=== PATIENT | male | born 1955 | race African-American/Black ===

== ENCOUNTER 2021-05-29 18:49 | Emergency (ER) | payer BC, OTHER ==
--- OUTSIDE RECORDS SUMMARY | 2021-05-29 18:53 | XMS REPORT | Continuity of Care Document ---
:1955 Author Organization [facility] t Address [address] [place] [address] Care Team Providers Name Role Phone An Attending Clinician Unavailable Raphael_Sumi Admitting Clinician Unavailable Payers Payer Name Policy Type Policy Number Effective Date Expiration Date darek [facility] [id number] 2021 (MEDICARE 00:00:00 REPLACEMENT H[place]) [place] [id number] 2019 (PPO) 0 00:00:00 Problems Condition Condition Condition Status Onset Resolution Last Treating Co mments Source Name Details Category Date Date Treatment Clinician Date Type 2 Type 2 Problem Active [facility] diabetes Diabetes 4-05 Family mellitus Mellitus 00:00: Practi c 00 e Overweight Overweight Problem Active [facility] 8-07 Family 00:00: Practic 00 e Hyperlipid Hyperlipid Problem Active 2016-05 [facility] emia emia 1-17 Family 00:00: Practic 00 e Cataract Cataract Problem Active 2016-05 Patel ge -17 Family 00:00: Practic 00 e Essential Essential Problem Active 2016-05 Abhinav ger hypertensi Hypertensi -17 Fa saniya on on 00:00: Practic 00 e Seasonal Seasonal Problem Active 2016-05 Patel ge allergic Allergic 17 Family rhinitis Rhinitis 00:00: Practi c 00 e Primary Primary Problem Active 2016-05 [facility] erectile Erectile 17 Family dysfunctio Dysfunctio 00:00: Pr actic n n 00 e Disorder Disorder Problem Active 2016-05 Patel ge due to Due to 05-14 Family type 2 Type 2 00:00: Practic diabetes Diabetes 00 e mellitus Mellitus Impotence Impotence Problem Active 2016-05 Abhinav ger 05-14 Family 00:00: Practic 00 e Hypertensi Hypertensi Problem Active 2016-05 [facility] ve ve 05-14 Family disorder Disorder 00:00: Practi c 00 e 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 [facility] e lens e Lens 05-14 Family finding Finding 00:00: Practic 00 e Family Family Problem Active 2016-05 [facility] history of History of 05-14 Fa saniya cardiac Cardiac 00:00: Practic disorder Disorder 00 e Allergies, Adverse Reactions, Alerts This patient has no known allergies or adverse reactions. Social History Smoking Status Start Date Stop Date Source Smoker, Current Status Unknown [facility] Medications Ordered Filled Start Stop Current Ordering Indication Dosage Frequency Signature Comments Components Source Medication Medication Date Date Medication? Clinician (SIG) Name Name Accu-Chek Accu-Chek No Accu-Chek [facility] Fastclix Fastclix Fastclix Fam stephanie Lancet Drum Lancet Drum Lancet Practic Drum e Accu-Chek Accu-Chek No Accu-Chek [facility] FastClix FastClix FastClix Fam stephanie Lancing Lancing Lancing Practi c Device Device Device e Accu-Chek Accu-Chek No Accu-Chek [facility] Guide Guide Guide [facility] Glucose Glucose Glucose Practi c Meter Meter Meter e Accu-Chek Accu-Chek No Accu-Chek [facility] test Guide test Guide test Family strips USE strips USE strips USE Practic DIRECTED DIRECTED e THREE TIMES THREE TIMES DIRECTED DAILY DAILY THREE TIMES DAILY azelastine azelastine No azelastine [facility] 0.05 % eye 0.05 % eye 0.05 % eye Family drops drops drops Practic e fluticasone fluticasone No fluticason [place] propionate propionate e Fam stephanie 50 50 propionate Practic mcg/actuati mcg/actuati 50 e on nasal on nasal mcg/actuat spray,suspe spray,suspe ion nasal nsion nsion spray,susp ension losartan losartan No losartan Abhinav ger 100 mg 100 mg 100 mg Family tablet TAKE tablet TAKE tablet Practic 1 TABLET BY 1 TABLET BY TAKE 1 e MOUTH EVERY MOUTH EVERY TABLET BY DAY DAY MOUTH EVERY DAY lovastatin lovastatin No lovastatin [facility] 10 mg 10 mg 10 mg Family tablet TAKE tablet TAKE tablet Practic 1 TABLET BY 1 TABLET BY TAKE 1 e MOUTH EVERY MOUTH EVERY TABLET BY DAY WITH DAY WITH MOUTH MEAL MEAL EVERY DAY WITH MEAL meloxicam meloxicam No meloxicam [facility] 15 mg 15 mg 15 mg Family tablet tablet tablet Practic e metoclopram metoclopram No metoclopra [facility] aleksey 10 mg aleksey 10 mg mide 10 mg Family tablet tablet tablet Practic e montelukast montelukast No montelukas [facility] 10 mg 10 mg t 10 mg Family tablet tablet tablet Practic e pioglitazon pioglitazon No pioglitazo [facility] e 15 mg e 15 mg ne 15 mg Famil y tablet TAKE tablet TAKE tablet Practic 1 TABLET BY 1 TABLET BY TAKE 1 e MOUTH EVERY MOUTH EVERY TABLET BY DAY DAY MOUTH EVERY DAY Restasis Restasis No Restasis Abhinav ger 0.05 % eye 0.05 % eye 0.05 % eye Family drops in a drops in a drops in a Practic dropperette dropperette dropperett e INSTILL 1 INSTILL 1 e INSTILL DROP INTO DROP INTO 1 DROP BOTH EYES 2 BOTH EYES 2 INTO BOTH TIMES A DAY TIMES A DAY EYES 2 TIMES A DAY sildenafil sildenafil No sildenafil [facility] 100 mg 100 mg 100 mg Family tablet One tablet One tablet One Practic tab every tab every tab every e three days three days three days as needed as needed as needed Synjardy XR Synjardy XR No Synjardy [facility] 12.5 12.5 XR 12.5 Family mg-1,000 mg mg-1,000 mg mg-1,000 Practic tablet, tablet, mg tablet, e extended extended extended release release release TAKE 2 TAKE 2 TAKE 2 TABLETS BY TABLETS BY TABLETS BY MOUTH ONCE MOUTH ONCE MOUTH ONCE DAILY IN DAILY IN DAILY IN THE MORNING THE MORNING THE MORNING Vital Signs Vital Name Observation Time Observation Value Comments Source BP Diastolic 2020-08-10 00:00:00 97 mm[Hg] [facility] Height 2020-08-10 00:00:00 71.5 [in_i] [facility] BMI (Body Mass 2020-08-10 00:00:00 26.1 kg/m2 [facility] Practice BP Systolic 2020-08-10 00:00:00 166 mm[Hg] [facility] Body Weight 2020-08-10 00:00:00 190 [lb_av] [facility] Body Weight 2020-03-25 00:00:00 196 [lb_av] [facility] BP Diastolic 2020-03-25 00:00:00 84 mm[Hg] [facility] Height 2020-03-25 00:00:00 71.5 [in_i] [facility] BMI (Body Mass 2020-03-25 00:00:00 27 kg/m2 [facility] Family Index) Practice BP Systolic 2020-03-25 00:00:00 144 mm[Hg] [facility] Procedures Procedure Date / Time Performing Clinician Source Performed Laparoscopic [facility] Cholecystectomy Practice Plan of Care Planned Activity Planned Date Details Comments Source Diagnostic Test 2020-08-10 glucose, fingerstick, Abhinav Pantoja Pending 00:00:00 blood [code = Practice glucose, fingerstick, blood] Diagnostic Test 2020-08-10 hemoglobin A1C, Prasanna miles Pending 00:00:00 fingerstick [code = Practice hemoglobin A1C, fingerstick] Encounters Start End Encounter Admission Attending Care Care Encounter Source Date/Time Date/Time Type Type Clinicians Facility Department ID 2021-04-19 2021-04-19 Outpatient DMG DMG [id number] [facility] 11:00:00 11:00:00 [facility] 2020-08-12 2020-08-12 Outpatient Daniel_T VFP VFP [id number] [address] [place] [address] 06:47:00 06:47:00 [id number] Family Practic e 2020-08-10 2020-08-10 Outpatient Daniel_T [facility]FP VFP [id number] [address] [place] [address] 04:42:00 04:42:00 [id number] Family Practic e 2020-08-10 2020-08-10 Stephen VFP [place] - [id number] [facility] 00:00:00 00:00:00 Cristian [facility] Mary Beth Monk - Practi freya SMITH: [id number] [email or web address]_René fuentes [facility], [address], [place] [address] , Ph. 2020-06-25 2020-06-25 Outpatient Daniel_T VFP VFP [id number] [address] [place] [address] 09:03:00 09:03:00 [id number] Family Practic e 2020-06-25 2020-06-25 Outpatient Daniel_T VFP VFP [id number] 8-20 [facility] 09:03:00 09:03:00 [id number] Family Practic e 2020-06-24 2020-06-24 Outpatient Daniel_T VFP VFP [id number] 8-20 [facility] 12:33:00 12:33:00 [id number] Family Practic e 2020-03-30 2020-03-30 Outpatient Daniel_T VFP VFP [id number] 8-20 [facility] 05:41:00 05:41:00 [id number] Family Practic e 2020-03-25 2020-03-25 Outpatient Daniel_T VFP VFP [id number] 8-20 [facility] 04:32:00 04:32:00 [id number] Family Practic e 2020-03-25 2020-03-25 Stephen VFP [place] - [id number] [facility] 00:00:00 00:00:00 [facility] Family LimMary Beth MD: [id number] VM_HOU_Onel [facility] [address], [place] [address] , Ph. Results Test Description Test Time Test Comments Results Result [facility] Comments - CT MAXIFAC W/O 2018-08-03 Name: STORMY RODRIGUEZ CONTRAST 08:51:00 [facility] : 1955 Age/S: 63 / M [address] [facility] Unit #: [id number] Loc: [place] [address] Phys: Nik Aguilera III, MD Acct: [id number] Dis Date: Status: REG CLI PHONE #: [phone] Exam Date: 08/03/2018 0805 FAX #: Reason: CHRONIC SINUS UNSPECIFIED LOCATION EXAMS: CPT: [id number] CT MAXIFAC W/O CONTRAST [address] CT SINUSES WITHOUT IV CONTRAST; CORONAL AND SAGITTAL REFORMATTED VIEWS HISTORY:CHRONIC SINUS UNSPECIFIED LOCATION COMPARISON:None. TECHNIQUE: Axial CT images of the sinuses were obtained with coronal and sagittal reformatted views. Automated exposure control, iterative reconstruction technique, and/or adjustment of mA and/or kV according to patient's size was utilized for radiation dose reduction. IV CONTRAST: None. Location: U19. FINDINGS: Mild polypoid thickening along the inferior aspects of both maxillary sinuses. Probable mucous retention cyst in the right maxillary sinus measuring 1.9 x 2 cm. There is thickening of the ethmoid sinuses bilaterally with obstruction of both ostiomeatal complexes. There is minimal thickening in the left sphenoid sinus. Thickening seen along both frontal ethmoidal recess partial obstruction of the right frontal ethmoidal airway and obstruction along the left frontal ethmoidal airway. The mastoid air cells are clear. No facial fracture. No significant nasal septal deviation. There may be some mild thickening of the inferior nasal turbinates. The orbits appear intact. No retrobulbar hemorrhage or mass. No CT evidence of extraocular muscle entrapment, correlate clinically. IMPRESSION: Mild sinus disease of the maxillary ethmoid sinuses, especially the ethmoid sinuses resulting in obstruction of the drainage pathways from the frontal and maxillary sinuses. at 0851 Reported and signed by: Tito Conrelius M.D. PAGE 1 Signed Report (CONTINUED) Name: STORMY RODRIGUEZ [facility] : 1955 Age/S: 63 / M [id number] [address] Unit #: [id number] Loc: [place] [address] Phys: Nik Aguilera III, MD Acct: [id number] Dis Date: Status: REG CLI PHONE #: [phone] Exam Date: 08/03/2018 0805 FAX #: Reason: CHRONIC SINUS UNSPECIFIED LOCATION EXAMS: CPT: [id number] CT MAXIFAC W/O CONTRAST 10741 <Continued> CC: Stephen Lim MD; Nik Aguilera III, MD Technologist:Froylan Alas, RT(R)(CT) CTDI: DLP: Trnscb Date/Time: 08/03/2018 (850) [email or web address] Orig Print D/T: S: 08/03/2018 (54) CTDI: DLP: PAGE 2 Signed Report
[2021-05-29 20:19] LABS: Absolute Lymphocytes (CBC) 1.6 K/uL (0.7-4.9); Hematocrit 41.4 % (39.6-49.0); Lymphocytes % 26.9 % (15.3-44.8); MPV 8.9 fL (7.6-11.3); RBC Red Blood Cell Count 4.93 M/uL (4.33-5.43)
[2021-05-29 20:33] LABS: Protime INR 0.99
[2021-05-29 20:39] LABS: ALT/SGPT 28 U/L (12-78); Albumin 3.4 g/dL (3.4-5.0); Alkaline Phosphatase 90 U/L (45-117); BUN Blood Urea Nitrogen 23 mg/dL (7-18); Bicarbonate 22 mmol/L (21-32); Bilirubin Direct < 0.1 mg/dL (0-0.2); Bilirubin Total 0.1 mg/dL (0.2-1.0); Glucose Level 139 mg/dL (74-106); Protein, Total 7.5 g/dL (6.4-8.2); Sodium Level 139 mmol/L (136-145)
[2021-05-29 20:40] LABS: AST/SGOT 20 U/L (15-37); Potassium 4.3 mmol/L (3.5-5.1)
[2021-05-29 20:41] LABS: NT PRO-BNP < 5 pg/mL (<125)
--- NOTE | 2021-05-29 21:49 | RAD REPORT ---
EXAM DESCRIPTION: USExtrem Venous W Compress Bil05/29/2021 9:43 pm CLINICAL HISTORY: Leg pain COMPARISON: none FINDINGS: The common femoral, superficial femoral, popliteal and posterior tibial veins bilaterally are compressible and demonstrate augmentation. Doppler demonstrates good flow. IMPRESSION: No evidence of deep venous thrombosis involving either lower extremity.
--- NOTE | 2021-05-29 22:00 | RAD REPORT ---
EXAM DESCRIPTION: CT - Chest For Pe Angio - 05/29/2021 9:42 pm CLINICAL HISTORY: Chest pain COMPARISON: None. TECHNIQUE: Dynamically enhanced axial 3 mm thick images of the chest were obtained during administra tion of <100> mL Isovue 370 IV contrast. Coronal and oblique reconstruction images were generated and reviewed. Exam utilizes a protocol for optimal evaluation of pulmonary arterial tree. Maximum intensity projections 3D imaging was utilized All CT scans are performed using dose optimization technique as appropriate and may include automated exposure control or mA/KV adjustment according to patient size. FINDINGS: A pulmonary embolus is not seen. A thoracic aortic aneurysm is not noted. A pleural effusion is not seen. A pericardial effusion is not seen. Mild to moderate ground-glass opacities scattered throughout the left lung. Minimal ground-glass opac ities right lung IMPRESSION: Negative for a pulmonary embolism. Mild to moderate left and minimal right ground-glass opacities can be seen with viral pneumonia and p neumonitis
--- NOTE | 2021-05-29 22:02 | RAD REPORT ---
EXAM DESCRIPTION: Miguelito Single View05/29/2021 8:48 pm CLINICAL HISTORY: Congestive COMPARISON: 2014 FINDINGS: Tkco-[id number] left lung opacities. Right lung appears clear. Heart is normal size IMPRESSION: Mild to moderate left lung opacities probably pneumonia
[2021-05-29] MEDS ORDERED: ASPIRIN EC 81 MG TAB PO ONE (22:16)
--- NOTE | 2021-05-29 22:16 | EDPHYS ---
Physician Documentation [facility] Name: Keyur Fuller Age: 65 yrs Sex: Male : 1955 Arrival Date: 05/29/2021 Time: 18:53 Bed 25 Private MD: ED Physician Herb Guy HPI: 05/29 19:36 This 65 yrs old Black Male presents to ER via Ambulatory with complaints of Weakness, briana Leg Pain. 19:36 weakness. Onset: The symptoms/episode began/occurred yesterday. Severity of symptoms: briana At their worst the symptoms were mild in the emergency department the symptoms are unchanged. The patient has experienced similar episodes in the past, a few times. Historical: - Allergies: 19:11 No Known Allergies; ld1 - PMHx: 19:11 Diabetes - NIDDM; High Cholesterol; Hypertension; ld1 - PSHx: 19:11 None; ld1 - Immunization history:: Adult Immunizations up to date, Client reports receiving the 2nd dose of the Covid vaccine. - Social history:: Smoking status: Patient denies any tobacco usage or history of. Patient/guardian denies using alcohol. ROS: 19:36 Constitutional: Negative for fever, chills, and weight loss, Eyes: Negative for injury, briana pain, redness, and discharge, ENT: Negative for injury, pain, and discharge, Neck: Negative for injury, pain, and swelling, Cardiovascular: Negative for chest pain, palpitations, and edema, Respiratory: Negative for shortness of breath, cough, wheezing, and pleuritic chest pain, Abdomen/GI: Negative for abdominal pain, nausea, vomiting, diarrhea, and constipation, Back: Negative for injury and pain, : Negative for injury, bleeding, discharge, and swelling, MS/Extremity: Negative for injury and deformity, Skin: Negative for injury, rash, and discoloration, Psych: Negative for depression, anxiety, suicide ideation, homicidal ideation, and hallucinations, Allergy/Immunology: Negative for hives, rash, and allergies, Endocrine: Negative for neck swelling, polydipsia, polyuria, polyphagia, and marked weight changes, Hematologic/Lymphatic: Negative for swollen nodes, abnormal bleeding, and unusual bruising. 19:36 Neuro: Positive for weakness. Exam: 19:36 Constitutional: This is a well developed, well nourished patient who is awake, alert, briana and in no acute distress. Head/Face: Normocephalic, atraumatic. Eyes: Pupils equal round and reactive to light, extra-ocular motions intact. Lids and lashes normal. Conjunctiva and sclera are non-icteric and not injected. Cornea within normal limits. Periorbital areas with no swelling, redness, or edema. ENT: Nares patent. No nasal discharge, no septal abnormalities noted. Tympanic membranes are normal and external auditory canals are clear. Oropharynx with no redness, swelling, or masses, exudates, or evidence of obstruction, uvula midline. Mucous membranes moist. Neck: Trachea midline, no thyromegaly or masses palpated, and no cervical lymphadenopathy. Supple, full range of motion without nuchal rigidity, or vertebral point tenderness. No Meningismus. Chest/axilla: Normal chest wall appearance and motion. Nontender with no deformity. No lesions are appreciated. Cardiovascular: Regular rate and rhythm with a normal S1 and S2. No gallops, murmurs, or rubs. Normal PMI, no JVD. No pulse deficits. Respiratory: Lungs have equal breath sounds bilaterally, clear to auscultation and percussion. No rales, rhonchi or wheezes noted. No increased work of breathing, no retractions or nasal flaring. Abdomen/GI: Soft, non-tender, with normal bowel sounds. No distension or tympany. No guarding or rebound. No evidence of tenderness throughout. Back: No spinal tenderness. No costovertebral tenderness. Full range of motion. Male : Normal genitalia with no discharge or lesions. Skin: Warm, dry with normal turgor. Normal color with no rashes, no lesions, and no evidence of cellulitis. MS/ Extremity: Pulses equal, no cyanosis. Neurovascular intact. Full, normal range of motion. Neuro: Awake and alert, GCS 15, oriented to person, place, time, and situation. Cranial nerves II-XII grossly intact. Motor strength 5/5 in all extremities. Sensory grossly intact. Cerebellar exam normal. Normal gait. Psych: Awake, alert, with orientation to person, place and time. Behavior, mood, and affect are within normal limits. 20:08 ECG was reviewed by the Attending Physician. [facility] Vital Signs: 19:15 BP 144 / 86; Pulse 88; Resp 16; Temp 99.1; Pulse Ox 97% on R/A; Pain 5/10; palmer 20:13 BP 142 / 85; Pulse 85; Resp 18; Pulse Ox 99% on R/A; Pain 5/10; palmer 21:08 BP 140 / 85; Pulse 79; Resp 18; Pulse Ox 99% on R/A; palmer 23:16 BP 122 / 82; Pulse 73; Resp 16; Temp 98.6; Pulse Ox 98% on R/A; Pain 0/10; palmer NIH Stroke Scale Scores: 20:13 NIHSS Score: 0 palmer MDM: 19:16 Patient medically screened. briana 19:37 Data reviewed: vital signs, nurses notes, lab test result(s), EKG, radiologic studies, briana CT scan, plain films. Data interpreted: quality assurance monitor chassis: rate is 78 beats/min, rhythm is regular. Test interpretation: by ED physician or midlevel provider: ECG, plain radiologic studies. Counseling: I had a detailed discussion with the patient and/or guardian regarding: the historical points, exam findings, and any diagnostic results supporting the discharge/admit diagnosis, lab results, radiology results, the need for outpatient follow up, for definitive care, a family practitioner. 05/29 19:27 Order name: Basic Metabolic Panel; Complete Time: 21:56 [facility] 05/29 19:27 Order name: CBC with Diff; Complete Time: 20:29 [facility] 05/29 19:27 Order name: LFT's; Complete Time: 21:56 [facility] 05/29 19:27 Order name: Magnesium; Complete Time: 21:56 [facility] 05/29 19:27 Order name: NT PRO-BNP; Complete Time: 21:56 [facility] 05/29 19:27 Order name: PT-INR; Complete Time: 21:56 [facility] 05/29 19:27 Order name: Troponin HS; Complete Time: 21:56 [facility] 05/29 19:27 Order name: XRAY Chest (1 view); Complete Time: 22:08 [facility] 05/29 19:27 Order name: D-Dimer; Complete Time: :56 [facility] 05/29 19:34 Order name: SARS-COV-2 RT PCR (Document "Date of Onset" if Symptomatic); Complete Time: [facility] 05/29 20:40 Order name: CT Chest For PE Angio; Complete Time: 22:08 [facility] 05/29 20:40 Order name: US Extremity Venous W Compression Edilson; Complete Time: 21:56 [facility] 05/29 23:24 Order name: Urine Dipstick-Ancillary EDMS 05/29 19:27 Order name: EKG; Complete Time: 19:28 [facility] 05/29 19:27 Order name: Cardiac monitoring; Complete Time: 19:32 [facility] 05/29 19:27 Order name: EKG - Nurse/Tech; Complete Time: 20:10 [facility] 05/29 19:27 Order name: IV Saline Lock; Complete Time: :32 [facility] 05/29 19:27 Order name: Labs collected and sent; Complete Time: :32 [facility] 05/29 19:27 Order name: O2 Per Protocol; Complete Time: : [facility] 05/29 19:27 Order name: O2 Sat Monitoring; Complete Time: :32 [facility] 05/29 19:27 Order name: Urine Dipstick-Ancillary (obtain specimen); Complete Time: 23:23 [facility] EC:08 Rate is 79 beats/min. Rhythm is regular. QRS [place] is Normal. VA interval is normal. QRS briana interval is normal. QT interval is normal. No Q waves. T waves are Normal. No ST changes noted. Clinical impression: Normal ECG and No evidence of ischemia. Interpreted by me. Reviewed by me. Administered Medications: 20:00 Drug: NS 0.9% 1000 ml Route: IV; Rate: 1 bolus; Site: left antecubital; palmer 21:46 Follow up: Response: No adverse reaction; IV Status: Completed infusion; IV Intake: palmer 1000ml 23:09 Follow up: Response: No adverse reaction; IV Intake: 1000ml palmer 20:00 Drug: Aspirin 81 mg Route: PO; palmer 20:35 Follow up: Response: No adverse reaction palmer 22:17 Drug: Pepcid (famotidine) 40 mg Route: PO; palmer 23:08 Follow up: Response: No adverse reaction palmer 22:17 Drug: Zithromax (azithromycin) 500 mg Route: PO; palmer 23:08 Follow up: Response: No adverse reaction palmer 22:17 Drug: Aspirin 243 mg Route: PO; palmer 23:08 Follow up: Response: No adverse reaction palmer Disposition Summary: 05/29/21 22:15 Discharge Ordered Location: Home briana Problem: new briana Symptoms: have improved briana Condition: Stable briana Diagnosis - Type 2 diabetes mellitus with hyperglycemia briana - Pneumonia due to SARS-associated coronavirus briana - Weakness briana - Coronavirus infection, unspecified [facility]up[facility] - With: Private Physician - When: 2 - 3 days - Reason: Recheck today's complaints, Continuance of care, Re-evaluation by your physician Discharge Instructions: - Discharge Summary Sheet briana - Community-Acquired Pneumonia, Adult briana - Weakness briana - Fatigue briana - Community-Acquired Pneumonia, Adult, Gipr-kg-Xglf briana - Weakness, Hago-wi-Lqmj briana - Aspirin and Your Heart briana - COVID-19 [facility] - COVID-19 Frequently Asked Questions [facility] - Things You Can Do to Manage Your COVID-19 Symptoms at Home - [facility] - COVID-19: Quarantine vs. Isolation - [facility] Forms: - Medication Reconciliation Form [facility] - Thank You Letter [facility] - Antibiotic Education [facility] - Prescription Opioid Use [facility] Prescriptions: - albuterol sulfate 90 mcg/actuation Inhalation HFA aerosol inhaler - inhale 2 puff by INHALATION route every 4-6 hours; 1 Pump; Refills: 0, Product [facility] Selection Permitted - ivermectin 3 mg Oral tablet - take 5 tablet by ORAL route once daily; 15 tablet; Refills: 0, Product [facility] Selection Permitted - Pepcid 20 mg Oral Tablet - take 1 tablet by ORAL route every 12 hours for 30 days; 60 tablet; Refills: 0, [facility] Product Selection Permitted - Singulair 10 mg Oral Tablet - take 1 tablet by ORAL route At bedtime; 30 tablet; Refills: 0, Product [facility] Selection Permitted - Zithromax 500 mg Oral Tablet - take 1 tablet by ORAL route once daily for 5 days; 5 tablet; Refills: 0, [facility] Product Selection Permitted NIH Stroke Scale - NIH Stroke Score Date: 05/29/2021 Time: 20:13 Total Score = 0 1a. Level of Consciousness (LOC) - 0(Alert) 1b. Level of Consciousness (LOC) (Month \\T\\ Age) - 0(Both) 1c. LOC Commands (Open \\T\\ Closes Eyes/Prototype Engineer Manager) - 0(Both) 2. Best Gaze (Lateral Gaze Paresis) - 0(Normal) 3. Visual Field Loss - 0(No visual loss) 4. Facial Palsy - 0(Normal) 5a. Left Arm: Motor (10-second hold) - 0(No drift) 5b. Right Arm: Motor (10-second hold) - 0(No drift) 6a. Left Leg: Motor (5-second hold - always test supine) - 0(No drift) 6b. Right Leg: Motor (5-second hold - always test supine) - 0(No drift) 7. Limb Ataxia (finger/nose \\T\\ heel/conrad - test with eyes open) - 0(Absent) 8. Sensory Loss (pinprick arms/legs/face) - 0(Normal) 9. Best Language: Aphasia (description/naming/reading) - 0(No aphasia) 10. Dysarthria (speech clarity - read or repeat words) - 0(Normal) 11. Extinction and Inattention (visual/tactile/auditory/spatial/personal) - 0(No abnormality) Initials: palmer Signatures: Dispatcher [employer] Herb Marmolejo MD MD cha Dibbern, Lauren, RN RN ld1 Haven Ayala RN RN palmer
--- NOTE | 2021-05-29 22:16 | ER ---
Nurse's Notes [facility] Name: Keyur Fuller Age: 65 yrs Sex: Male : 1955 Arrival Date: 05/29/2021 Time: 18:53 Bed 25 Private MD: Diagnosis: Type 2 diabetes mellitus with hyperglycemia;Pneumonia due to SARS-associated coronavirus;Weakness;Coronavirus infection, unspecified Presentation: 05/29 19:10 Chief complaint: Patient states: I have had DANIEL leg pain X 1 month. It seems to be ld1 getting worse. Pt thinks he has arthritis. Coronavirus screen: At this time, the client does not indicate any symptoms associated with coronavirus-19. Ebola Screen: No symptoms or risks identified at this time. No acute neurological deficit is noted. Pre-hospital glucose is not applicable to this patient. Initial Sepsis Screen: Does the patient meet any 2 criteria? No. Patient's initial sepsis screen is negative. Does the patient have a suspected source of infection? No. Patient's initial sepsis screen is negative. Risk Assessment: Do you want to hurt yourself or someone else? Patient reports no desire to harm self or others. Onset of symptoms was May 29, 2021. 19:10 Method Of Arrival: Ambulatory ld1 19:10 Acuity: MARKO 4 ld1 Triage Assessment: 19:11 The onset of the patients symptoms was May 29, 2021 at 19:12. General: Appears in ld1 no apparent distress. comfortable, Behavior is calm, cooperative, appropriate for age. Pain: Complains of pain in right leg and left leg Pain does not radiate. Neuro: Level of Consciousness is awake, alert, obeys commands, Oriented to person, place, time, situation, Reports weakness. Respiratory: Airway is patent Respiratory effort is even, unlabored, Respiratory pattern is regular, symmetrical. Historical: - Allergies: 19:11 No Known Allergies; ld1 - PMHx: 19:11 Diabetes - NIDDM; High Cholesterol; Hypertension; ld1 - PSHx: 19:11 None; ld1 - Immunization history:: Adult Immunizations up to date, Client reports receiving the 2nd dose of the Covid vaccine. - Social history:: Smoking status: Patient denies any tobacco usage or history of. Patient/guardian denies using alcohol. Screenin:13 Abuse screen: Denies threats or abuse. Denies injuries from another. Nutritional palmer screening: No deficits noted. Tuberculosis screening: No symptoms or risk factors identified. Fall Risk None identified. Assessment: 20:13 VAN Scoring: Arm Drift: Patients demonstrates NO arm weakness. Patient is VAN Negative. palmer Patient has been NPO before screening. The patient is alert, and able to follow commands. The patient does not exhibit slurred or garbled speech. The patient is not exhibiting difficulty speaking. The patient does not exhibit difficulty understanding words. The patient is able to swallow own secretions with no drooling or need for suction. Patient tolerated one teaspoon of water. No drooling, immediate coughing, gurgling, or clearing of the throat was noted. The patient tolerated 90mL of water. No drooling, immediate coughing, gurgling, or clearing of the throat was noted. The patient passed the bedside swallow screening. Oral medications may be given as ordered. Contact Physician for further diet orders. T-PA (Activase) Screening: Indications:. General: Appears in no apparent distress. comfortable, well groomed, Behavior is calm, cooperative, Smells of Reports Bilateral leg pain x "a few months, but got worse with the cold snap". Pain: Complains of pain in right leg and left leg. Neuro: No deficits noted. Cardiovascular: No deficits noted. Respiratory: No deficits noted. GI: No deficits noted. : No deficits noted. Musculoskeletal: Reports weakness in right leg and left leg x "a few months, but got worse with the cold snap" Pt reports he saw his GP and was diagnosed with arthritis "a few weeks ago" for the same pain. 21:30 General: The pt is sleeping, on the bs monitor, with NAD. I asked that he provide a palmer urine specimen, but as of yet, hasn't. . 21:37 General: Pt taken to CT, via stretcher. . palmer 21:46 General: The pt has returned from CT. . palmer Vital Signs: 19:15 BP 144 / 86; Pulse 88; Resp 16; Temp 99.1; Pulse Ox 97% on R/A; Pain 5/10; palmer 20:13 BP 142 / 85; Pulse 85; Resp 18; Pulse Ox 99% on R/A; Pain 5/10; palmer 21:08 BP 140 / 85; Pulse 79; Resp 18; Pulse Ox 99% on R/A; palmer 23:16 BP 122 / 82; Pulse 73; Resp 16; Temp 98.6; Pulse Ox 98% on R/A; Pain 0/10; palmer NIH Stroke Scale Scores: 20:13 NIHSS Score: 0 palmer ED Course: 18:53 Patient arrived in ED. as 19:11 Triage completed. ld1 19:11 Arm band placed on right wrist. ld1 19:16 Herb Guy MD is Attending Physician. briana 19:31 Haven Ayala, RN is Primary Nurse. palmer 19:31 Troponin HS Sent. palmer 19:31 PT-INR Sent. palmer 19:31 NT PRO-BNP Sent. palmer 19:32 Magnesium Sent. palmer 19:32 LFT's Sent. palmer 19:32 CBC with Diff Sent. palmer 19:32 Basic Metabolic Panel Sent. palmer 19:32 D-Dimer Sent. palmer 20:10 XRAY Chest (1 view) Sent. palmer 20:13 Patient has correct armband on for positive identification. Placed in gown. Bed in low palmer position. Call light in reach. Side rails up X 1. youth nutritional monitor on. Pulse ox on. NIBP on. Door closed. Noise minimized. Lights dimmed. Verbal reassurance given. 20:13 No provider procedures requiring assistance completed. Inserted saline lock: 20 gauge palmer in left antecubital area, using aseptic technique. 20:20 EKG completed in triage. Results shown to MD. palmer 20:23 D-Dimer Sent. palmer 20:35 SARS-COV-2 RT PCR (Document "Date of Onset" if Symptomatic) Sent. palmer 20:48 XRAY Chest (1 view) In Process Unspecified. EDMS 21:30 SARS-COV-2 RT PCR (Document "Date of Onset" if Symptomatic) Sent. palmer 21:30 US Extremity Venous W Compression Daniel Sent. palmer 21:43 CT Chest For PE Angio In Process Unspecified. EDMS 21:43 US Extremity Venous W Compression Daniel In Process Unspecified. EDMS 23:16 intact, bleeding controlled, No redness/swelling at site. Pressure dressing applied. palmer Administered Medications: 20:00 Drug: NS 0.9% 1000 ml Route: IV; Rate: 1 bolus; Site: left antecubital; palmer 21:46 Follow up: Response: No adverse reaction; IV Status: Completed infusion; IV Intake: palmer 1000ml 23:09 Follow up: Response: No adverse reaction; IV Intake: 1000ml palmer 20:00 Drug: Aspirin 81 mg Route: PO; palmer 20:35 Follow up: Response: No adverse reaction palmer 22:17 Drug: Pepcid (famotidine) 40 mg Route: PO; palmer 23:08 Follow up: Response: No adverse reaction palmer 22:17 Drug: Zithromax (azithromycin) 500 mg Route: PO; palmer 23:08 Follow up: Response: No adverse reaction palmer 22:17 Drug: Aspirin 243 mg Route: PO; palmer 23:08 Follow up: Response: No adverse reaction palmer Intake: 21:46 IV: 1000ml; Total: 1000ml. palmer 23:09 IV: 1000ml; Total: 2000ml. palmer Outcome: 20:20 Condition: stable palmer 22:15 Discharge ordered by . briana 23:15 Discharged to home ambulatory, The pt's is also being seen, so the pt is going to palmer room 27 to be with her. 23:15 Discharge instructions given to patient, Instructed on discharge instructions, medication usage, Demonstrated understanding of instructions, follow-up care, medications, Prescriptions given X x 5 23:32 Patient left the ED. palmer NIH Stroke Scale - NIH Stroke Score Date: 05/29/2021 Time: 20:13 Total Score = 0 1a. Level of Consciousness (LOC) - 0(Alert) 1b. Level of Consciousness (LOC) (Month \\T\\ Age) - 0(Both) 1c. LOC Commands (Open \\T\\ Closes Eyes/Heel Lining Paster) - 0(Both) 2. Best Gaze (Lateral Gaze Paresis) - 0(Normal) 3. Visual Field Loss - 0(No visual loss) 4. Facial Palsy - 0(Normal) 5a. Left Arm: Motor (10-second hold) - 0(No drift) 5b. Right Arm: Motor (10-second hold) - 0(No drift) 6a. Left Leg: Motor (5-second hold - always test supine) - 0(No drift) 6b. Right Leg: Motor (5-second hold - always test supine) - 0(No drift) 7. Limb Ataxia (finger/nose \\T\\ heel/conrad - test with eyes open) - 0(Absent) 8. Sensory Loss (pinprick arms/legs/face) - 0(Normal) 9. Best Language: Aphasia (description/naming/reading) - 0(No aphasia) 10. Dysarthria (speech clarity - read or repeat words) - 0(Normal) 11. Extinction and Inattention (visual/tactile/auditory/spatial/personal) - 0(No abnormality) Initials: palmer Signatures: Dispatcher [employer] Herb Marmolejo MD MD cha Martinez, Amelia as Dibbern, Lauren, RN RN ld1 Haven Ayala RN RN palmer
[2021-05-29] MEDS ORDERED: FAMOTIDINE 20 MG TAB ONE (22:17)
[2021-05-29] MEDS ORDERED: AZITHROMYCIN 250 MG TAB ONE (22:17)
[2021-05-29 23:24] LABS: Urine Blood Trace-intact (Negative); Urine Glucose 2+ (Negative); Urine Protein Trace (Negative)
[2021-05-30 00:28] VITALS: BP 122/82; TEMP 98.6; O2SAT 98
--- NOTE | 2021-05-31 08:06 | EKG ---
Test Date: 2021-05-29 Test Time: 19:47:59 Soccer Referee: MEASUREMENT RESULTS: Intervals: Rate: 79 NC: 142 QRSD: 94 QT: 358 QTc: 410 [place]: P: 54 NC: 142 QRS: -53 T: -13 INTERPRETIVE STATEMENTS: Normal sinus rhythm Left anterior fascicular block Abnormal ECG Compared to ECG 12/17/2014 17:53:31 ST (T wave) deviation no longer present Electronically Signed On 05-31-21 08:03:11 SHRIMP PEELER by Thomas Handy
== END 2021-05-29 23:32 | disposition home or self-care (01) ==
LOC: ER 18:49
DX: U07.1 COVID-19 (principal); J12.82 Pneumonia due to coronavirus disease 2019; E11.65 Type 2 diabetes mellitus with hyperglycemia; I10 Essential (primary) hypertension
CPT/HCPCS: 96361; 93005; 85025; 80048; 36415; 83735; 85610; 85379; 80076; 81003; 84484; 83880; 71275; 71045; 93970; 96360; 99284; U0003; Q9967

== ENCOUNTER 2022-09-01 03:11 | Emergency (ER) | payer MEDICARE ==
--- OUTSIDE RECORDS SUMMARY | 2022-09-01 03:14 | XMS REPORT | Continuity of Care Document ---
:1955 Author Organization [facility] t Address [address] [place] [address] [place] [id number] Care Team Providers Name Role Phone GRACIELA SEAN Primary Care Physician Unavailable An Attending Clinician Unavailable ALESIA MCKOY Attending Clinician Unavailable Alesia Zhu Attending Clinician Leeroy Lobato Attending Clinician Rico Attending Clinician Unavailable Melissa Lucero Attending Clinician An Admitting Clinician Unavailable ALESIA MCKOY Admitting Clinician Unavailable Rico Admitting Clinician Unavailable Payers Payer Name Policy Type Policy Number Effective Date Expiration Date S darek [employer] [id number] 2021 (MEDICARE 00:00:00 REPLACEMENT HMO) [employer] [id number] 2021 MEDICARE ADVANTAGE 00:00:00 [place] [id number] 2019 (PPO) 0 00:00:00 Problems Condition Condition Condition Status Onset Resolution Last Treating Co mments Source Name Details Category Date Date Treatment Clinician Date Body mass Body Mass Problem Active 2021-05 Abhinav ger index Index 0-28 Family 25-29 - 25-29 - 00:00: Practic overweight Overweight 00 e Neuropathy Neuropathy Problem Active 2021-05 [facility] due to Due to 0-28 Family diabetes Diabetes 00:00: Practi c mellitus Mellitus 00 e Type 2 Type 2 Problem Active [facility] diabetes Diabetes 4-05 Family mellitus Mellitus 00:00: Practi c 00 e Overweight Overweight Problem Active [facility] 8-07 Family 00:00: Practic 00 e Hyperlipid Hyperlipid Problem Active 2016-05 [facility] emia emia 1-17 Family 00:00: Practic 00 e Cataract Cataract Problem Active 2016-05 Jorge ge -17 Family 00:00: Practic 00 e Essential Essential Problem Active 2016-05 Abhinav cyr hypertensi Hypertensi -17 Fa saniya on on 00:00: Practic 00 e Seasonal Seasonal Problem Active 2016-05 Jorge ge allergic Allergic 17 Family rhinitis Rhinitis 00:00: Practi c 00 e Primary Primary Problem Active 2016-05 [facility] erectile Erectile 17 Family dysfunctio Dysfunctio 00:00: Pr actic n n 00 e Disorder Disorder Problem Active 2016-05 Jorge gray due to Due to 1-07 Family type 2 Type 2 00:00: Practic diabetes Diabetes 00 e mellitus Mellitus Impotence Impotence Problem Active 2016-05 Abhinav cyr 1-07 Family 00:00: Practic 00 e Hypertensi Hypertensi Problem Active 2016-05 [facility] ve ve 07 Family disorder Disorder 00:00: Practi c 00 e 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 [facility] e lens e Lens 05-14 Family finding Finding 00:00: Practic 00 e Family Family Problem Active 2016-05 [facility] history of History of 05-14 saniya cardiac Cardiac 00:00: Practic disorder Disorder 00 e Allergies, Adverse Reactions, Alerts Allergy Allergy Status Severity Reaction(s) Onset Inactive Treating Comm ents Source Name Type Date Date Clinician NO KNOWN Drug [facility] Social History Social Habit Start Date Stop Date Quantity Comments Source Exposure to 2022-07-25 2022-08-04 Not sure [facility] SARS-CoV-2 (event) 00:00:00 09:51:00 Medica l Branch Sex [birth year] At [birth year] [facility] [place] 00:00:00 00:00:00 Medical Branch Smoking Status Start Date Stop Date Source Smoker, Current Status Unknown [facility] Tobacco smoking consumption [facility] Medical unknown Branch Medications Ordered Filled Start Stop Current Ordering Indication Dosage Frequency Signature Comments Components Source Medication Medication Date Date Medication? Clinician (SIG) Name Name acetaminoph No 1000mg 1,000 mg, Univers en 08-04 Oral, ity of (TYLENOL) 17:30: 16:48 [place] tablet [place] :[place] dose, On Medical 1,000 mg Mary Lou Branch 08/04/22 at 1230, Routine dexamethaso 2022- No 10mg 10 mg, Uni vers ne 08-04 Oral, ity of (DECADRON 17:30: 17:30 [place] PHOSPHATE[place] 00 :00 dose, On Medic al injection [facility] Branch 10 mg 08/04/22 at 1230, Routine ketorolac 2022- No 30mg 30 mg, Unive rs (TORADOL) 08-04 Intramuscu ity of injection 17:15: 16:50 lar, ONCE, [place] 30 mg 00 :00 1 dose, On Medical Mary Lou [facility] 08/04/22 at 1215, Routine Diclofenac 2022- Yes [id number] Apply to [facility] Epolamine 08-04-07 skin 2 ity of 1.3 % patch 00:00: 04:59 (two) [place] 00 :00 times Medical daily for Branch 7 days. methocarbam 2022- Yes [id number] 500mg Take 1 Univers oL 500 mg 08-04 tablet by ity of tablet 00:00: 04:59 mouth 4 [place] 00 :00 (four) Medical times Branch daily for 7 days. ondansetron Yes [id number] 4mg Take 1 Univers (ZOFRAN) 4 5-04 tablet by ity of mg tablet 00:00: mouth [place] 00 every 8 Medical (eight) Branch hours as needed for Nausea and Vomiting (N/V). los[facility] 5-03 mouth. ity of (LOSARTAN 22:52: [place] ORAL) 31 Medical Branch GLIPIZIDE Yes Take by Unive rs ORAL 5-03 mouth. ity of 22:52: [place] [facility] metformin Yes Take by Unive rs HCl 5-03 mouth. ity of (METFORMIN 22:52: [place] ORAL) Medical Branch pioglitazon Yes Take by Uni vers e HCl 5-03 mouth. ity of (PIOGLITAZO 22:52: [place] NE ORAL) Medical Branch Accu-Chek Accu-Chek No Accu-Chek [facility] Fastclix Fastclix Fastclix Fam stephanie Lancet Drum Lancet Drum Lancet Practic Drum e Accu-Chek Accu-Chek No Accu-Chek [facility] FastClix FastClix FastClix Fam stephanie Lancing Lancing Lancing Practi c Device Device Device e Accu-Chek Accu-Chek No Accu-Chek Prasanna Guide Guide Guide Family Glucose Glucose Glucose Practi c Meter Meter Meter e Accu-Chek Accu-Chek No Accu-Chek [facility] Guide test Guide test Guide test Family strips USE strips USE strips USE Practic DIRECTED DIRECTED e THREE TIMES THREE TIMES DIRECTED DAILY DAILY THREE TIMES DAILY azelastine azelastine No azelastine [place] 0.05 % eye 0.05 % eye 0.05 % eye Family drops drops drops Practic e famotidine famotidine No famotidine [facility] 20 mg 20 mg 20 mg Family tablet TAKE tablet TAKE tablet Practic 1 TABLET BY 1 TABLET BY TAKE 1 e MOUTH EVERY MOUTH EVERY TABLET BY 12 HOURS 12 HOURS MOUTH EVERY 12 HOURS fluticasone fluticasone No fluticason [facility] propionate propionate e Fam stephanie 50 50 [...] MOUTH EVERY DAY lovastatin lovastatin No lovastatin [place] 10 mg 10 mg 10 mg Family tablet TAKE tablet TAKE tablet Practic 1 TABLET BY 1 TABLET BY TAKE 1 e MOUTH EVERY MOUTH EVERY TABLET BY DAY WITH DAY WITH MOUTH MEAL MEAL EVERY DAY WITH MEAL meloxicam meloxicam No meloxicam [facility] 15 mg 15 mg 15 mg Family tablet tablet tablet Practic e Metanx Metanx No 1capsul BID Metanx [place] e (algal oil) (algal oil) e(s) (algal Family 3 mg-35 3 mg-35 oil) 3 Practic mg-2 mg-2 mg-35 mg-2 e mg-90.314 mg-90.314 mg-90.314 mg capsule mg capsule mg capsule Take 1 Take 1 Take 1 capsule capsule capsule twice a day twice a day twice a by oral by oral day by route for route for oral route 90 days. 90 days. for 90 days. pioglitazon pioglitazon No pioglitazo [place] e 15 [...] TIMES A DAY sildenafil sildenafil No sildenafil [facility] 100 mg 100 mg 100 mg Family tablet TAKE tablet TAKE tablet Practic 1 TABLET BY 1 TABLET BY TAKE 1 e MOUTH EVERY MOUTH EVERY TABLET BY 72 HOURS 72 HOURS MOUTH NEEDED NEEDED EVERY 72 HOURS NEEDED Synjardy XR Synjardy XR No Synjardy [facility] 12.5 12.5 XR 12.5 Family mg-1,000 mg mg-1,000 mg mg-1,000 Practic tablet, tablet, mg tablet, e extended extended extended release release release TAKE 2 TAKE 2 TAKE 2 TABLETS BY TABLETS BY TABLETS BY MOUTH ONCE MOUTH ONCE MOUTH ONCE DAILY IN DAILY IN DAILY IN THE MORNING THE MORNING THE MORNING Accu-Chek Accu-Chek No Accu-Chek [facility] Fastclix Fastclix Fastclix Fam stephanie Lancet Drum Lancet Drum Lancet Practic Drum e Accu-Chek Accu-Chek No Accu-Chek [facility] FastClix FastClix FastClix Fam stephanie Lancing Lancing Lancing Practi c Device Device Device e Accu-Chek Accu-Chek No Accu-Chek [facility] Guide Guide Guide Family Glucose Glucose Glucose Practi c Meter Meter Meter e Accu-Chek Accu-Chek No Accu-Chek [facility] Guide test Guide test Guide test Family strips USE strips USE strips USE Practic DIRECTED DIRECTED e THREE TIMES THREE TIMES DIRECTED DAILY DAILY THREE TIMES DAILY azelastine azelastine No azelastine [facility] 0.05 % eye 0.05 % eye 0.05 % eye Family drops drops drops Practic e famotidine famotidine No famotidine [facility] 20 mg 20 mg 20 mg Family tablet TAKE tablet TAKE tablet Practic 1 TABLET BY 1 TABLET BY TAKE 1 e MOUTH EVERY MOUTH EVERY TABLET BY 12 HOURS 12 HOURS MOUTH EVERY 12 HOURS fluticasone fluticasone No fluticason [facility] propionate propionate e Fam stephanie 50 50 [...] MOUTH EVERY DAY lovastatin lovastatin No lovastatin [facility] 10 mg 10 mg 10 mg Family tablet TAKE tablet TAKE tablet Practic 1 TABLET BY 1 TABLET BY TAKE 1 e MOUTH EVERY MOUTH EVERY TABLET BY DAY WITH DAY WITH MOUTH MEAL MEAL EVERY DAY WITH MEAL meloxicam meloxicam No meloxicam [facility] 15 mg 15 mg 15 mg Family [...] TIMES A DAY sildenafil sildenafil No sildenafil [place] 100 mg 100 mg 100 mg Family tablet TAKE tablet TAKE tablet Practic 1 TABLET BY 1 TABLET BY TAKE 1 e MOUTH EVERY MOUTH EVERY TABLET BY 72 HOURS 72 HOURS MOUTH NEEDED NEEDED EVERY 72 HOURS NEEDED Synjardy XR Synjardy XR No Synjardy [facility] 12.5 12.5 XR 12.5 Family mg-1,000 mg mg-1,000 mg mg-1,000 Practic tablet, tablet, mg tablet, e extended extended extended release release release TAKE 2 TAKE 2 TAKE 2 TABLETS BY TABLETS BY TABLETS BY MOUTH ONCE MOUTH ONCE MOUTH ONCE DAILY IN DAILY IN DAILY IN THE MORNING THE MORNING THE MORNING Vital Signs Vital Name Observation Time Observation Value Comments Source Systolic blood 2022-08-04 18:00:00 132 mm[Hg] [facility] Diastolic blood 2022-08-04 18:00:00 78 mm[facility]Hg[facility] 2022-08-04 18:00:00 55 /min [facility] Respiratory rate 2022-08-04 18:00:00 16 /min [facility] Oxygen saturation in 2022-08-04 18:00:00 100 /min [facility] Arterial blood by [facility] Pulse oximetry Branch Body temperature 2022-08-04 14:52:00 37.28 [facility] Body height 2022-08-04 14:52:00 180.3 cm [facility] Body weight 2022-08-04 14:52:00 83.915 kg [facility] BMI 2022-08-04 14:52:00 25.80 kg/m2 [facility] BP Diastolic 2022-03-04 00:00:00 77 mm[Hg] [facility] Height 2022-03-04 00:00:00 71 [in_i] [facility] BMI (Body Mass 2022-03-04 00:00:00 25.4 kg/m2 [facility] BP Systolic 2022-03-04 00:00:00 131 mm[Hg] [facility] Body Weight 2022-03-04 00:00:00 182.2 [lb_av] [facility] BP Diastolic 2021-09-02 00:00:00 80 mm[Hg] [facility] Height 2021-09-02 00:00:00 71 [in_i] [facility] BMI (Body Mass 2021-09-02 00:00:00 25.4 kg/m2 [facility] e Family Index) Practice BP Systolic 2021-09-02 00:00:00 134 mm[Hg] [facility] Body Weight 2021-09-02 00:00:00 181.8 [lb_av] [facility] BP Diastolic 2020-08-10 00:00:00 97 mm[Hg] [facility] Height 2020-08-10 00:00:00 71.5 [in_i] [facility] BMI (Body Mass 2020-08-10 00:00:00 26.1 kg/m2 [facility] Family Index) Practice BP Systolic 2020-08-10 00:00:00 166 mm[Hg] [facility] Body Weight 2020-08-10 00:00:00 190 [lb_av] [facility] BP Diastolic 2020-03-25 00:00:00 84 mm[Hg] [facility] Height 2020-03-25 00:00:00 71.5 [in_i] [facility] BMI (Body Mass 2020-03-25 00:00:00 27 kg/m2 [facility] Family Index) Practice BP Systolic 2020-03-25 00:00:00 144 mm[Hg] [facility] Body Weight 2020-03-25 00:00:00 196 [lb_av] [facility] Procedures Procedure Date / Time Performing Clinician Source Performed XR RIBS 3 VW RIGHT 2022-08-04 16:58:55 Alesia Mckoy [facility] [place] NOTICE OF PRIVACY 2022-08-04 14:45:14 Doctor [place], [facility] PRACTICES [facility] CONSENT/REFUSAL FOR 2022-08-04 14:42:56 Doctor Katia [facility] DIAGNOSIS AND TREATMENT [facility] [place] Laparoscopic [facility] Cholecyst[facility] Practice Plan of Care Planned Activity Planned Date Details Comments Source Diagnostic Test 2022-03-04 glucose, fingerstick, Abhinav cyr Family Pending 00:00:00 blood [code = Practice glucose, fingerstick, blood] Diagnostic Test 2022-03-04 hemoglobin A1C, Prasanna miles Pending 00:00:00 fingerstick [code = Practice hemoglobin A1C, fingerstick] Future Appointment 2022-09-02 Stephen Lim, [id number] [facility] 10:00:[address]; Practice [address], [place] [address] Future Appointment 2022-09-02 Stephen Lim, [id number] Pantoja 00:00:00 [address]; Practice [address], [place] [address] Encounters Start End Encounter Admission Attending Care Care Encounter Source Date/Time Date/Time Type Type Clinicians Facility Department ID 2022-08-30 2022-08-30 Outpatient Onelel_T VFP VFP [id number] 8-20 [facility] 00:00:00 00:00:00 [id number] Family Practic e 2022-08-04 2022-08-04 Emergency X [facility] ERT [id number] Univers 09:54:00 13:09:00 ALESIA leyva [facility] 2022-08-04 2022-08-04 [facility] [id number] [facility] 09:54:00 13:09:00 Alesia Mason EXCELLO [id number] ity [facility] [id number] [facility] [id number] [place] [address] Branch 2022-05-20 2022-05-20 CAV Salli 2.16.840. [id number]. CLAC [id number] [facility] 18:00:00 19:00:00 Fulminar [id number] 9JW Medical [id number] 2022-05-20 2022-05-20 Outpatient Fulminar_S DMG DMG [id number] [facility] 00:00:00 00:00:00 0113 Medica l Group 2022-03-04 2022-03-04 Outpatient Daniel_T VFP VFP [id number] 8-20 [facility] 00:00:00 00:00:00 [id number] Family Practic e 2022-03-04 2022-03-04 Stephen VFP [place] - [id number] [place] ill[place] 00:00:00 00:00:00 Cristian [facility] Family LimMary Beth - Pracjeannette pillai MD: [id number] [place] - e Shadow VM_HOU_[address], [place] [address] , Ph. 2022-03-01 2022-03-01 Outpatient Daniel_T VFP VFP [id number] [address] [place] [address] 00:00:00 00:00:00 [id number] Family Practic e 2022-01-03 2022-01-03 CAV Melissa 2.16.840. 2.16.840.1. CLAC [id number] [facility] 15:30:00 16:30:00 Lucero [id number] [facility] [id number] 2021-11-19 2021-11-19 [place] [id number] [facility] 03:16:00 03:16:00 0715 Medica l Group 2021-09-24 2021-09-24 Outpatient Daniel_T VFP VFP [id number] [address] [place] [address] 00:00:00 00:00:00 [id number] Family Practic e 2021-09-23 2021-09-23 Outpatient Daniel_T VFP VFP [id number] [address] [place] [address] 00:00:00 00:00:00 [id number] Family Practic e 2021-09-02 2021-09-02 Outpatient Daniel_T VFP VFP [id number] [address] [place] [address] 12:44:00 12:44:00 [id number] Family Practic e 2021-09-02 2021-09-02 Stephen VFP [place] - [id number] [facility] ill[place] 00:00:00 00:00:00 [facility] Family Lim Medical - Practi freya SMITH: [id number] MIYA_GERRY_René e [facility], [address], [place] [address] , Ph. 2021-08-16 2021-08-16 Outpatient Daniel_T VFP VFP [id number] [address] [place] [address] 10:35:00 10:35:00 [id number] Family Practic e 2021-08-16 2021-08-16 Outpatient VFP VFP [id number] [place] [address] 10:35:00 10:35:00 [id number] Family Practic e 2021-08-16 2021-08-16 Outpatient VFP VFP [id number] 20 [facility] 10:35:00 10:35:00 [id number] Family Practic e 2021-08-16 2021-08-16 Outpatient Daniel_T VFP VFP [id number] [address] 10:35:00 10:35:00 [id number] Family Practic e 2021-04-19 2021-04-19 Outpatient DMG DMG [id number] [facility] 11:00:00 11:00:00 1213 Medica l Group 2020-08-12 2020-08-12 Outpatient Daniel_T VFP VFP [id number] [address] [place] [address] 06:47:00 06:47:00 [id number] Family Practic e 2020-08-10 2020-08-10 Outpatient Daniel_T VFP VFP [id number] [address] [place] [address] 04:42:00 04:42:00 [id number] Family Practic e 2020-08-10 2020-08-10 Stephen VFP [place] - [id number] V illage 00:00:00 00:00:00 [facility] Family Lim, Medical - Practi freya SMITH: [id number] VM_HOU_René e [facility], [address], [place] [address] , Ph. 2020-06-25 2020-06-25 Outpatient Daniel_T VFP VFP [id number] [address] [place] [address] 09:03:00 09:03:00 [id number] Family Practic e 2020-06-25 2020-06-25 Outpatient Daniel_T VFP VFP [id number] [address] [place] [address] 09:03:00 09:03:00 [id number] Family Practic e 2020-06-24 2020-06-24 Outpatient Daniel_T VFP VFP [id number] [address] [place] [address] 12:33:00 12:33:00 [id number] Family Practic e 2020-03-30 2020-03-30 Outpatient Daniel_T VFP VFP [id number] [address] [place] [address] 05:41:00 05:41:00 [id number] Family Practic e 2020-03-25 2020-03-25 Outpatient Daniel_T VFP VFP [id number] [address] [place] [address] 04:32:00 04:32:00 [id number] Family Practic e 2020-03-25 2020-03-25 Stephen VFP [place] - [id number] V illage 00:00:00 00:00:00 Cristian [facility] Mary Beth Lim - Michael pillai MD: [id number] VM_HOU_Onel fuentes [facility], [address], [place] [address] , Ph. Results Test Description Test Time Test Comments Results Result Comments Source Hemoglobin A1c measurement device panel 2022-03-04 10:39:12 Test Item Value Reference Range Interpretation Comme nts Hemoglobin A1c/Hemoglobin.total in Blood (test code = 4548-4) 6.8 % 5.7-6.[address] [facility] [id number] 10:36:38 Test Item Value Reference Range Interpretation Comments Hemoglobin A1C Fingerstick: (test code 6.3 = Hemoglobin A1C Fingerstick:) [facility]/volume] in Capillary [id number] 10:33:49 Test Item Value Reference Range Interpretation Comments Blood Glucose: mg/dl (test code = Blood 188 Glucose: mg/dl) [facility] MAXIFAC W/O [id number] 08:51:00 Name: STORMY RODRIGUEZ [facility] : 1955 Age/S: 63 / M [id number] [facility] Unit #: [id number] Loc: [place] [address] Phys: Nik Aguilera III, MD Acct: [id number] Dis Date: Status: REG CLI PHONE #: [phone] Exam Date: 08/03/2018 0805 FAX #: Reason: CHRONIC SINUS UNSPECIFIED LOCATION EXAMS: CPT: [id number] CT MAXIFAC W/O CONTRAST [address]752 CT SINUSES WITHOUT IV CONTRAST; CORONAL AND SAGITTAL REFORMATTED VIEWS HISTORY:CHRONIC SINUS UNSPECIFIED LOCATION COMPARISON:None. TECHNIQUE: Axial CT images of the sinuses were obtained with coronal and sagittal reformatted views. Automated exposure control, iterative reconstruction technique, and/or adjustment of mA and/or kV according to patie nt's size was utilized for radiation dose reduction. IV CONTRAST: None. Location: U19. FINDINGS: Mild polypoid thickening along the inferior aspects of both maxillary sinuses. Probable mucous retention cyst in the right maxillary sinus measuring 1.9 x 2 cm. There is thickening of the ethmoid sinuses b ilaterally with obstruction of both ostiomeatal complexes. There [...] at 0851 Reported and signed by: Tito Cornelius M.D. PAGE 1 Signed Report (CONTINUED) Name: STORMY RODRIGUEZ [facility] : 1955 Age/S: 63 / M [id number] Unit #: [id number] Loc: [place] [address] Phys: Nik Aguilera III, MD Acct: [id number] Dis Date: Status: REG CLI PHONE #: [phone] Exam Date: 08/03/2018 0805 FAX #: Reason: CHRONIC SINUS UNSPECIFIED LOCATION EXAMS: CPT: [id number] CT MAXIFAC W/O CONTRAST 33150 (Continued) CC: Stephen Lim MD; Nik Aguilera III, MD Technologist:Froylan Alas RT(R)(CT) CTDI: DLP: Trnscb Date/Time: 08/03/2018 (0851) [email or web address] Orig Print D/T: S: 08/03/2018 (0854) CTDI: DLP: PAGE 2 Signed Report
[2022-09-01] MEDS ORDERED: MORPHINE 4 MG/ML SYR ONE (06:19)
[2022-09-01] MEDS ORDERED: FAMOTIDINE 20 MG/2 ML VIAL IV ONE (06:19)
[2022-09-01] MEDS ORDERED: NA CHLORIDE 0.9% 1,000 ML ONE (06:19)
[2022-09-01] MEDS ORDERED: ONDANSETRON 4 MG/2 ML VIAL ONE (06:19)
[2022-09-01 07:13] LABS: Absolute Lymphocytes (CBC) 1.5 K/uL (0.7-4.9); Hematocrit 40.5 % (39.6-49.0); Lymphocytes % 13.8 % (15.3-44.8); MCV 80.2 fL (80-100); MPV 8.6 fL (7.6-11.3); RBC Red Blood Cell Count 5.05 M/uL (4.33-5.43)
[2022-09-01 07:19] LABS: Protime INR 1.05
[2022-09-01 07:27] LABS: Albumin 3.6 g/dL (3.4-5.0); Bilirubin Direct 0.2 mg/dL (0-0.2); Bilirubin Total 0.5 mg/dL (0.2-1.0); Magnesium 1.9 mg/dL (1.6-2.4); Potassium 4.1 mEq/L (3.5-5.1); Protein, Total 8.9 g/dL (6.4-8.2); Troponin High Sensitivity 5.2 pg/mL (<58.9)
--- NOTE | 2022-09-01 08:29 | EDPHYS ---
Physician Documentation [facility] Name: Keyur Fuller Age: 67 yrs Sex: Male : 1955 Arrival Date: 09/01/2022 Time: 03:11 Bed 8 Private MD: ED Physician Herb Guy HPI: 09/01 03:37 This 67 yrs old Black Male presents to ER via Unassigned with complaints of Abdominal briana Pain, Low Back Pain. 03:37 The patient presents with pain that is acute. The symptoms are located in the low back. briana The pain does not radiate. 05:35 The problem was sustained from unknown cause. Onset: The symptoms/episode briana began/occurred yesterday. Modifying factors: The patient symptoms are alleviated by nothing, the patient symptoms are aggravated by movement. Associated signs and symptoms: Pertinent positives: chest pain. Associated injuries: The patient sustained no obvious injury. Historical: - Allergies: 04:26 No Known Allergies; kl - Home Meds: 04:26 Glipizide Oral [Active]; Synjardy oral [Active]; losartan oral [Active]; pioglitazone kl oral [Active]; - PMHx: 04:26 Diabetes - NIDDM; High Cholesterol; Hypertension; kl - PSHx: 04:26 Cholecystectomy; kl - Immunization history:: Adult Immunizations up to date. - Social history:: Smoking status: Patient denies any tobacco usage or history of. - Family history:: not pertinent. ROS: 03:37 Constitutional: Negative for fever, chills, and weight loss, Eyes: Negative for injury, briana pain, redness, and discharge, ENT: Negative for injury, pain, and discharge, Neck: Negative for injury, pain, and swelling, Cardiovascular: Negative for chest pain, palpitations, and edema, Respiratory: Negative for shortness of breath, cough, wheezing, and pleuritic chest pain, Abdomen/GI: Negative for abdominal pain, nausea, vomiting, diarrhea, and constipation, : Negative for injury, bleeding, discharge, and swelling, MS/Extremity: Negative for injury and deformity, Skin: Negative for injury, rash, and discoloration, Neuro: Negative for headache, weakness, numbness, tingling, and seizure, Psych: Negative for depression, anxiety, suicide ideation, homicidal ideation, and hallucinations, Allergy/Immunology: Negative for hives, rash, and allergies, Endocrine: Negative for neck swelling, polydipsia, polyuria, polyphagia, and marked weight changes, Hematologic/Lymphatic: Negative for swollen nodes, abnormal bleeding, and unusual bruising. 03:37 Back: Positive for decreased range of motion, pain with movement, of the lumbar area. Exam: 03:37 Constitutional: This is a well developed, well nourished patient who is awake, alert, briana and in no acute distress. Head/Face: Normocephalic, atraumatic. Eyes: Pupils equal round and reactive to light, extra-ocular motions intact. Lids and lashes normal. Conjunctiva and sclera are non-icteric and not injected. Cornea within normal limits. Periorbital areas with no swelling, redness, or edema. ENT: Nares patent. No nasal discharge, no septal abnormalities noted. Tympanic membranes are normal and external auditory canals are clear. Oropharynx with no redness, swelling, or masses, exudates, or evidence of obstruction, uvula midline. Mucous membranes moist. Neck: Trachea midline, no thyromegaly or masses palpated, and no cervical lymphadenopathy. Supple, full range of motion without nuchal rigidity, or vertebral point tenderness. No Meningismus. Chest/axilla: Normal chest wall appearance and motion. Nontender with no deformity. No lesions are appreciated. Cardiovascular: Regular rate and rhythm with a normal S1 and S2. No gallops, murmurs, or rubs. Normal PMI, no JVD. No pulse deficits. Respiratory: Lungs have equal breath sounds bilaterally, clear to auscultation and percussion. No rales, rhonchi or wheezes noted. No increased work of breathing, no retractions or nasal flaring. Abdomen/GI: Soft, non-tender, with normal bowel sounds. No distension or tympany. No guarding or rebound. No evidence of tenderness throughout. Back: No spinal tenderness. No costovertebral tenderness. Full range of motion. Male : Normal genitalia with no discharge or lesions. Skin: Warm, dry with normal turgor. Normal color with no rashes, no lesions, and no evidence of cellulitis. Neuro: Awake and alert, GCS 15, oriented to person, place, time, and situation. Cranial nerves II-XII grossly intact. Motor strength 5/5 in all extremities. Sensory grossly intact. Cerebellar exam normal. Normal gait. Psych: Awake, alert, with orientation to person, place and time. Behavior, mood, and affect are within normal limits. 03:37 Musculoskeletal/extremity: ROM: intact in all extremities, full active range of motion, Circulation is intact in all extremities. Sensation intact. Compartment Syndrome exam of affected extremity: is normal. DVT Exam: no pain, no tenderness, negative Homans' sign noted on exam, no appreciated bluish discoloration, no increased warmth, swelling, erythema. 08:28 ECG was reviewed by the Attending Physician. [facility] Vital Signs: 04:22 Pulse 77; Resp 18; Temp 98.3(TE); Pulse Ox 100% on R/A; Weight 82.55 kg (R); Height 5 kl ft. 11 in. ; Pain 10/10; 04:25 BP 143 / 84; kl 06:29 BP 135 / 98; Pulse 71; Resp 19 S; Pulse Ox 96% on R/A; lg3 08:40 BP 148 / 81; Pulse 59; Resp 18; Pulse Ox 99% ; os 04:22 Body Mass Index 25.38 (82.55 kg, 180.34 cm) kl 04:22 Pain Scale: Adult kl MDM: 03:40 Differential diagnosis: strain, fracture, sciatica, contusion, Herniated disc UTI. [facility] Differential diagnosis: closed head injury, contusion, fracture, laceration, multiple trauma. Data reviewed: vital signs, nurses notes. Consideration of Admission/Observation Escalation of care including admission/observation considered. I considered the following discharge prescriptions or medication management in the emergency department Medications were administered in the Emergency Department. See MAR. Test considered but Not performed: MRI: no mri brain. Historians other than the Patient: EMS: good report. Spouse/Significant Other: well informed. Care significantly affected by the following chronic conditions: Diabetes, Hypertension, Obesity. 04:[address] [facility] 09/01 03:17 Order name: Basic Metabolic Panel; Complete Time: 07:39 [facility] 09/01 03:17 Order name: CBC with Diff; Complete Time: 07:20 [facility] 09/01 03:17 Order name: LFT's; Complete Time: 07:39 [facility] 09/01 03:17 Order name: Magnesium; Complete Time: 07:39 [facility] 09/01 03:17 Order name: NT PRO-BNP; Complete Time: 07:39 [facility] 09/01 03:17 Order name: PT-INR; Complete Time: 07:20 [facility] 09/01 03:17 Order name: Troponin HS; Complete Time: 07:39 [facility] 09/01 03:17 Order name: Lipase; Complete Time: 07:39 [facility] 09/01 03:17 Order name: Urinalysis w/ reflexes; Complete Time: 10:23 [facility] 09/01 07:57 Order name: Troponin HS: 8 am; Complete Time: 10:23 [facility] 09/01 03:17 Order name: XRAY Chest (1 view) 09/01 04:35 Order name: CT Aorta for Dissection; Complete Time: 10:23 [facility] 09/01 03:17 Order name: EKG; Complete Time: 03:18 [facility] 09/01 03:17 Order name: Cardiac monitoring; Complete Time: 06:28 [facility] 09/01 03:17 Order name: EKG - Nurse/Tech; Complete Time: 06:28 [facility] 09/01 03:17 Order name: IV Saline Lock; Complete Time: 06:28 [facility] 09/01 03:17 Order name: Labs collected and sent; Complete Time: 06:28 [facility] 09/01 03:17 Order name: O2 Per Protocol; Complete Time: 06:28 [facility] 09/01 03:17 Order name: O2 Sat Monitoring; Complete Time: 06:28 [facility] EC:28 Rate is 67 beats/min. Rhythm is regular. QRS [place] is Normal. IA interval is normal. QRS briana interval is normal. QT interval is normal. No Q waves. T waves are Normal. No ST changes noted. Clinical impression: NSR w/ Non-specific ST/T Changes and No evidence of ischemia. Interpreted by me. Reviewed by me. Administered Medications: 06:28 Drug: morphine IVP or IV 4 mg Route: IVP; Infused Over: 4 mins; Site: right forearm; lg3 06:28 Drug: Ondansetron IVP 4 mg Route: IVP; Site: right forearm; lg3 06:28 Drug: Famotidine IVP 20 mg Route: IVP; Site: right forearm; lg3 08:39 Drug: NS 0.9% IV 1000 ml Route: IV; Rate: 1 bolus; Site: left antecubital; os 09:51 Drug: Aspirin PO Chewable Tablet 81 mg Route: PO; os Disposition Summary: 09/01/22 08:28 Discharge Ordered Location: Home [facility] Problem: new briana Symptoms: have improved briana Condition: Stable briana Diagnosis - Abdominal pain, unspecified - lower briana - Low back pain briana - Type 2 diabetes mellitus with hyperglycemia briana Followup: briana - With: Private Physician - When: 2 - 3 days - Reason: Recheck today's complaints, Continuance of care, Re-evaluation by your physician Followup: briana - With: - When: 2 - 3 days - Reason: Recheck today's complaints, Re-evaluation by your physician Followup: briana - With: - When: 2 - 3 days - Reason: Recheck today's complaints, Re-evaluation by your physician Discharge Instructions: - Discharge Summary Sheet briana - Abdominal Pain, Adult briana - Acute Back Pain, Adult briana - Musculoskeletal Pain briana - Diabetes Mellitus and Nutrition, Adult briana - Aspirin and Your Heart briana Forms: - Medication Reconciliation Form briana - Thank You Letter briana - Antibiotic Education briana - Prescription Opioid Use [facility] Prescriptions: - Cyclobenzaprine 5 mg Oral Tablet - take 1 tablet by ORAL route 3 times per day As needed; 15 tablet; Refills: 0, briana Product Selection Permitted - dicyclomine 20 mg Oral Tablet - take 1 tablet by ORAL route 4 times per day; 28 tablet; Refills: 0, Product [facility] Selection Permitted Signatures: Dispatcher [employer] Mara Mackey RN RN kl Anderson, Corey, MD MD cha Gibson, Lacie, RN RN lg3 Perry Villalobos DO DO ms3 Hamilton Cardenas MD MD rn3 Miguel Tilley RN RN os Corrections: (The following items were deleted from the chart) 04:40 03:18 Abdomen Pelvis W Con+CT.RAD.BRZ ordered. EDMS EDMS
--- NOTE | 2022-09-01 08:29 | RAD REPORT ---
EXAM DESCRIPTION: CT - Angio Aorta For Dissection - 09/01/2022 7:49 am CLINICAL HISTORY: Chest pain radiating to the back. Abd pain;Dissection COMPARISON: No comparisons TECHNIQUE: CT angiography of the aorta was performed with MIPs. All CT scans are performed using dose optimization technique as appropriate and may include automated exposure control or mA/KV adjustment according to patient size. FINDINGS: A left aortic arch is present with normal branching pattern of the great vessels.No acute aortic finding is seen such as aneurysm, penetrating ulcer or dissection. The celiac axis, SMA, YAMILA and renal arteries are patent. No evidence of pulmonary embolism. Mild subsegmental atelectasis in the right lung base. The lungs are otherwise clear. Diffuse fatty liver.The spleen, pancreas, adrenal glands and kidneys are within normal limits for art erial phase imaging. No bowel obstruction, free fluid or abscess.Moderate stool is present throughout the colon. Normal ap pendix.No pathologic enlarged lymphadenopathy identified. Mild to moderate lumbar degenerative changes. IMPRESSION: No acute aortic finding is demonstrated. Fatty liver.
--- NOTE | 2022-09-01 08:29 | ER ---
Nurse's Notes [facility] Name: Keyur Fuller Age: 67 yrs Sex: Male : 1955 Arrival Date: 09/01/2022 Time: 03:11 Bed 8 Private MD: Diagnosis: Abdominal pain, unspecified-lower;Low back pain;Type 2 diabetes mellitus with hyperglycemia Presentation: 09/01 04:22 Chief complaint: Patient states: lower back pain began yesterday reports episode of kl constipation lower abdominal pain. Coronavirus screen: Vaccine status: Patient reports receiving the 2nd dose of the covid vaccine. Ebola Screen: Patient negative for fever greater than or equal to 101.5 degrees Fahrenheit, and additional compatible Ebola Virus Disease symptoms. Initial Sepsis Screen: Does the patient meet any 2 criteria? No. Patient's initial sepsis screen is negative. Does the patient have a suspected source of infection? No. Patient's initial sepsis screen is negative. Risk Assessment: Do you want to hurt yourself or someone else? Patient reports no desire to harm self or others. 04:22 Method Of Arrival: Ambulatory 04:22 Acuity: MARKO 3 kl Triage Assessment: 04:25 General: Appears uncomfortable, Behavior is cooperative, anxious. Pain: Complains of kl pain in lumbar area. Neuro: No deficits noted. Cardiovascular: No deficits noted. Respiratory: No deficits noted. GI: Reports lower abdominal pain, cramping, tolerance of fluids, tolerance of food. : No deficits noted. No signs and/or symptoms were reported regarding the genitourinary system. Derm: No deficits noted. Musculoskeletal: Reports pain in lumbar area. Historical: - Allergies: 04:26 No Known Allergies; kl - Home Meds: 04:26 Glipizide Oral [Active]; Synjardy oral [Active]; losartan oral [Active]; pioglitazone kl oral [Active]; - PMHx: 04:26 Diabetes - NIDDM; High Cholesterol; Hypertension; kl - PSHx: 04:26 Cholecystectomy; kl - Immunization history:: Adult Immunizations up to date. - Social history:: Smoking status: Patient denies any tobacco usage or history of. - Family history:: not pertinent. Screenin:29 [facility] ED Fall Risk Assessment (Adult) History of falling in the last 3 months, lg3 including since admission No falls in past 3 months (0 pts). Abuse screen: Denies threats or abuse. Denies injuries from another. Nutritional screening: No deficits noted. Tuberculosis screening: No symptoms or risk factors identified. Assessment: 06:29 General: Appears in no apparent distress. uncomfortable, Behavior is calm, cooperative. lg3 Pain: Complains of pain in lumbar area Pain currently is 8 out of 10 on a pain scale. Neuro: No deficits noted. [place] Agitation-Sedation Scale (RASS): 0 - Alert and Calm Level of Consciousness is awake, alert, obeys commands, Oriented to person, place, time, situation. Cardiovascular: No deficits noted. Denies chest pain, shortness of breath, Capillary refill < 3 seconds Clubbing of nail beds is absent JVD is absent Patient's skin is warm and dry. Respiratory: No deficits noted. Airway is patent Trachea midline Respiratory effort is even, unlabored, Respiratory pattern is regular, symmetrical. GI: No deficits noted. Abdomen is round non-distended, Bowel sounds present X 4 quads. Abd is soft X 4 quads. : No deficits noted. No signs and/or symptoms were reported regarding the genitourinary system. EENT: No deficits noted. No signs and/or symptoms were reported regarding the EENT system. Derm: No deficits noted. No signs and/or symptoms reported regarding the dermatologic system. Skin is intact, is healthy with good turgor, Skin is dry, Skin is normal. Musculoskeletal: Circulation, motion, and sensation intact. Range of motion: intact in all extremities, Reports pain in lumbar area. Vital Signs: 04:22 Pulse 77; Resp 18; Temp 98.3(TE); Pulse Ox 100% on R/A; Weight 82.55 kg (R); Height 5 kl ft. 11 in. ; Pain 10/10; 04:25 BP 143 / 84; kl 06:29 BP 135 / 98; Pulse 71; Resp 19 S; Pulse Ox 96% on R/A; lg3 08:40 BP 148 / 81; Pulse 59; Resp 18; Pulse Ox 99% ; os 04:22 Body Mass Index 25.38 (82.55 kg, 180.34 cm) kl 04:22 Pain Scale: Adult ED Course: 03:13 Patient arrived in ED. ja2 03:16 Herb Guy MD is Attending Physician. briana 04:25 Triage completed. kl 04:35 XRAY Chest (1 view) In Process Unspecified. EDMS 06:28 Inserted saline lock: 22 gauge in right forearm, using aseptic technique. Blood lg3 collected. 06:28 Lipase Sent. lg3 06:28 Basic Metabolic Panel Sent. lg3 06:28 CBC with Diff Sent. lg3 06:28 LFT's Sent. lg3 06:29 Magnesium Sent. lg3 06:29 NT PRO-BNP Sent. lg3 06:29 PT-INR Sent. lg3 06:29 Troponin HS Sent. lg3 06:29 Patient has correct armband on for positive identification. Placed in gown. Bed in low lg3 position. Call light in reach. Side rails up X 1. Client placed on continuous cardiac and pulse oximetry monitoring. NIBP monitoring applied. cardiac monitor technician on. Door closed. Noise minimized. Warm blanket given. 07:25 IV discontinued, intact, bleeding controlled, No redness/swelling at site. Pressure os dressing applied. 07:26 Inserted saline lock: 20 gauge in left antecubital area, using aseptic technique. os 07:51 CT Aorta for Dissection In Process Unspecified. EDMS 08:28 Lawrence Zhou MD is Referral Physician. briana 08:28 Noah Arguello MD is Referral Physician. briana 08:59 Miguel Tilley, JONATHAN is Primary Nurse. os 10:15 Patient Patient had a new IV line established 0730. ASA 81 mg given as ordered. os Administered Medications: 06:28 Drug: morphine IVP or IV 4 mg Route: IVP; Infused Over: 4 mins; Site: right forearm; lg3 06:28 Drug: Ondansetron IVP 4 mg Route: IVP; Site: right forearm; lg3 06:28 Drug: Famotidine IVP 20 mg Route: IVP; Site: right forearm; lg3 08:39 Drug: NS 0.9% IV 1000 ml Route: IV; Rate: 1 bolus; Site: left antecubital; os 09:51 Drug: Aspirin PO Chewable Tablet 81 mg Route: PO; os Medication: 10:14 VIS not applicable for this client. os Outcome: 08:28 Discharge ordered by . briana 10:30 Discharged to home ambulatory. os 10:30 Condition: improved 10:30 Discharge instructions given to patient, Instructed on discharge instructions, follow up and referral plans. no drinking with medication, medication usage, safe sex practices, Demonstrated understanding of instructions, follow-up care, medications, Prescriptions given X 2, Following a medical screening exam, the patient was provided information regarding alternative care sites and resources available per registration personnel. 10:31 Patient left the ED. os Signatures: Dispatcher [employer] Mara Mackey RN RN Herb Powell MD MD cha Gibson, Lacie, RN RN 3 Elvira Gonzalez Orest, RN RN os
[2022-09-01 09:44] LABS: Specific Gravity > 1.030 (1.005-1.030); Urine Bilirubin NEGATIVE (Negative); Urine Blood Negative (Negative); Urine Clarity Clear (Clear); Urine Color Light-Yellow (Yellow); Urine Glucose 4+ (Over) (Negative); Urine Protein NEGATIVE (Negative); Urine Urobilinogen Normal (Normal); Urine pH 5.5 (5.0-7.0)
[2022-09-01] MEDS ORDERED: ASPIRIN 81 MG CHEWABLE TABLET ONE (09:55)
[2022-09-01 10:36] VITALS: TEMP 98.3
[2022-09-01 10:41] VITALS: BP 148/81; O2SAT 99
--- NOTE | 2022-09-01 13:27 | RAD REPORT ---
EXAM DESCRIPTION: X-ray single view chest. CLINICAL HISTORY: 67 years Male, ABDOMINAL DISTENTION COMPARISON: Prior chest x-ray report from 08/19/2022. The image was not available for review. TECHNIQUE: Single portable x-ray view of the chest performed on 09/01/2022 at 4:14 AM FINDINGS: The lungs are well-expanded. There is volume loss in the right inferior hemithorax which m ay be due to a combination of pleural fluid, atelectasis or inflammatory changes. There is no evidenc e of a pneumothorax. The cardiac silhouette is normal in size and configuration. The mediastinal contours are normal. No acute osseous abnormality is identified. No acute soft tissue abnormalities are seen. Lines and tubes: None. Free air: None IMPRESSION: Volume loss in the right inferior hemithorax which may be due to a combination of pleura l fluid, atelectasis or inflammatory changes. Electronically signed by: Nohelia Fink DO 09/01/2022 5:06 AM CDT Due to temporary technical issues with the PACS/Fluency reporting system, reports are being signed by the in house radiologists without review as a courtesy to insure prompt reporting. The interpreting radiologist is fully responsible for the content of the report.
--- NOTE | 2022-09-02 07:03 | EKG ---
Test Date: 2022-09-01 Test Time: 06:27:22 Blind Cleaner: KATIANA MEASUREMENT RESULTS: Intervals: Rate: 66 WI: 136 QRSD: 92 QT: 436 QTc: 457 [place]son: P: 49 WI: 136 QRS: -54 T: 26 INTERPRETIVE STATEMENTS: Normal sinus rhythm Left anterior fascicular block Abnormal ECG Compared to ECG 08/19/2022 15:34:56 No significant changes Electronically Signed On 09-02-22 07:00:09 CDT by Thomas Handy
--- NOTE | 2022-09-03 15:26 | EKG ---
Test Date: 2022-09-01 Test Time: 06:28:35 Director Case Management: KATIANA MEASUREMENT RESULTS: Intervals: Rate: 67 CA: 136 QRSD: 94 QT: 414 QTc: 437 [place]: P: 45 CA: 136 QRS: -53 T: 31 INTERPRETIVE STATEMENTS: Normal sinus rhythm Left anterior fascicular block Abnormal ECG Compared to ECG 09/01/2022 06:27:22 No significant changes Electronically Signed On 09-03-22 15:25:51 CDT by Lawrence Zhou
== END 2022-09-01 10:31 | disposition home or self-care (01) ==
LOC: ER 03:11
DX: R10.30 Lower abdominal pain, unspecified (principal); M54.50 Low back pain, unspecified; E11.65 Type 2 diabetes mellitus with hyperglycemia
CPT/HCPCS: 93005 ×2; 85025; 80048; 36415; 83735; 85610; 80076; 81003; 84484 ×2; 83690; 83880; 71275; 74175; 71045; Q9967; J2405; J7030

== ENCOUNTER → 2023-06-19 | Emergency (ER) | payer OTHER ==
--- OUTSIDE RECORDS SUMMARY | 2023-06-19 17:10 | XMS REPORT | Continuity of Care Document ---
Author Name Unknown Address [address] [facility] [address] [place] [address] [facility] thconnect Address [address] [facility] [address] [place] [address] Care Team Providers Care Construction Helper Name Role Phone SEAN OWENS Primary Care Physician Unavailab linette Sigala Attending Clinician Unavailable ALESIA WHEELER Attending Clinician UnavailAlesia Faye Attending Clinician [phone] Leeroy Lobato Attending Clinician Rico Attending Clinician Unavailable Melissa Lucero Attending Clinician [phone] Zakiya Admitting Clinician Unavailable ALESIA WHEELER Admitting Clinician Unavaila debbie Gómez Admitting Clinician Unavailable Payers Payer Name Policy Type Policy Number Effective Date Expirati on Date Source [facility]PLAC[facility] HMO) [id number] 2021 00:00:00 [employer] MEDIC[employer] ADVANTAGE PLAN [id number] 2021 00:00:[place] [id number] 2019 00:00:00 Problems Condition Name Condition Details Condition Category Status Onset Date Resolution Date Last Treatment Date Treating Clinician Comments Source Body mass index 25-29 - overweight Body Mass Index 25-29 - Overweight Problem Active 2021-05 0 00:00: 00 [facility] 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 Active 2021-05 0 00:00: 00 [facility] Type 2 diabetes mellitus Type 2 Diabetes Mellitus Problem Active 405 00:00: 00 [facility] Overweight Overweight Problem Active 12-12 00:00: 00 [facility] Hyperlipid emia Hyperlipid emia Problem Active 2016-05 00:00: 00 [facility] Cataract Cataract Problem Active 2016-05 00:00: 00 [facility] Essential hypertensi on Essential Hypertensi on Problem Active 2016-05 00:00: 00 [facility] Seasonal allergic rhinitis Seasonal Allergic Rhinitis Problem Active 2016-05 00:00: 00 [facility] Primary erectile dysfunctio n Primary Erectile Dysfunctio n Problem Active 2016-05 00:00: 00 [facility] Crystallin e lens finding Crystallin e Lens Finding Problem Active 2016-05 00:00: 00 [facility] Family history of cardiac disorder Family History of Cardiac Disorder Problem Active 2016-05 00:00: 00 [facility] 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 Active 2016-05 00:00: 00 [facility] Impotence Impotence Problem Active 2016-05 00:00: 00 [facility] Hypertensi ve disorder Hypertensi ve Disorder Problem Active 2016-05 00:00: 00 [facility] Allergies, Adverse Reactions, Alerts Allergy Name Allergy Type Status Severity Reaction(s) Onset Date Inactive Date Treating Clinician Comments Source NO KNOWN ALLERGIE S Drug Class Active [facility] Social History Social Habit Start Date Stop Date Quantity Comments Source Exposure to SARS-CoV-2 (event) 2022-07-25 00:00:00 2022-08-04 09:51:00 Not sure [facility] Sex Assigned At 1955 00:00:00 1955 00:00:00 [facility] Smoking Status Start Date Stop Date Source Smoker, Current Status Unknown [facility] Tobacco smoking consumption unknown [facility] Medications Ordered Medication Name Filled Medication Name Start Date Stop Date Current Medication? Ordering Clinician Indication Dosage Frequency Signature (SIG) Comments Components Source acetaminoph en (TYLENOL) tablet 1,000 mg 08-04 17:30: 00 08-04 16:48 :00 No 1000mg 1,000 mg, Oral, ONCE, 1 dose, On [facility] 08/04/22 at 1230, Routine [facility] dexamethaso ne (DECADRON PHOSPHATE) injection 10 mg 08-04 17:30: 00 08-04 17:30 :00 No 10mg 10 mg, Oral, ONCE, 1 dose, On [place] 08/04/22 at 1230, Routine [facility] ketorolac (TORADOL) injection 30 mg 08-04 17:15: 00 08-04 16:50 :00 No 30mg 30 mg, Intramuscu lar, ONCE, 1 dose, On [facility] 08/04/22 at 1215, Routine [facility] Diclofenac Epolamine 1.3 % patch 08-04 00:00: 00 08-12 04:59 :00 No [id number] Apply to skin 2 (two) times daily for 7 days. [facility] methocarbam oL 500 mg tablet 08-04 00:00: 00 08-12 04:59 :00 No [id number] 500mg Take 1 tablet by mouth 4 (four) times daily for 7 days. [facility] ondansetron (ZOFRAN) 4 mg tablet 09-08 00:00: 00 Yes [id number] 4mg Take 1 tablet by mouth every 8 (eight) hours as needed for Nausea and Vomiting (N/V). [facility] losartan potassium (LOSARTAN ORAL) 09-07 22:52: 31 Yes Take by mouth. [facility] GLIPIZIDE ORAL 09-07 22:52: 31 Yes Take by mouth. [facility] metformin HCl (METFORMIN ORAL) 09-07 22:52: 31 Yes Take by mouth. [facility] pioglitazon e HCl (PIOGLITAZO NE ORAL) 09-07 22:52: 31 Yes Take by mouth. [facility] Accu-Chek Fastclix Lancet Drum Accu-Chek Fastclix Lancet Drum No Accu-Chek Fastclix Lancet Drum [facility] Accu-Chek FastClix Lancing Device Accu-Chek FastClix Lancing Device No Accu-Chek FastClix Lancing Device [facility] Accu-Chek Guide Glucose Meter Accu-Chek Guide Glucose Meter No Accu-Chek Guide Glucose Meter [facility] Accu-Chek Guide test strips USE DIRECTED THREE TIMES DAILY Accu-Chek Guide test strips USE DIRECTED THREE TIMES DAILY No Accu-Chek Guide test strips USE DIRECTED THREE TIMES DAILY [facility] azelastine 0.05 % eye drops azelastine 0.05 % eye drops No azelastine 0.05 % eye drops [facility] famotidine 20 mg tablet TAKE 1 TABLET BY MOUTH EVERY 12 HOURS famotidine 20 mg tablet TAKE 1 TABLET BY MOUTH EVERY 12 HOURS No famotidine 20 mg tablet TAKE 1 TABLET BY MOUTH EVERY 12 HOURS [facility] fluticasone propionate 50 mcg/actuati on nasal spray,suspe nsion fluticasone propionate 50 mcg/actuati on nasal spray,suspe nsion No fluticason e propionate 50 mcg/actuat ion nasal spray,susp ension [facility] losartan 100 mg tablet TAKE 1 TABLET BY MOUTH EVERY DAY losartan 100 mg tablet TAKE 1 TABLET BY MOUTH EVERY DAY No losartan 100 mg tablet TAKE 1 TABLET BY MOUTH EVERY DAY [facility] lovastatin 10 mg tablet TAKE 1 TABLET BY MOUTH EVERY DAY WITH MEAL lovastatin 10 mg tablet TAKE 1 TABLET BY MOUTH EVERY DAY WITH MEAL No lovastatin 10 mg tablet TAKE 1 TABLET BY MOUTH EVERY DAY WITH MEAL [facility] meloxicam 15 mg tablet meloxicam 15 mg tablet No meloxicam 15 mg tablet [facility] Metanx (algal oil) 3 mg-35 mg-2 mg-90.314 mg capsule Take 1 capsule twice a day by oral route for 90 days. Metanx (algal oil) 3 mg-35 mg-2 mg-90.314 mg capsule Take 1 capsule twice a day by oral route for 90 days. No 1capsul e(s) BID Metanx (algal oil) 3 mg-35 mg-2 mg-90.314 mg capsule Take 1 capsule twice a day by oral route for 90 days. [facility] pioglitazon e 15 mg tablet TAKE 1 TABLET BY MOUTH EVERY DAY pioglitazon e 15 mg tablet TAKE 1 TABLET BY MOUTH EVERY DAY No pioglitazo ne 15 mg tablet TAKE 1 TABLET BY MOUTH EVERY DAY [facility] Restasis 0.05 % eye drops in a dropperette INSTILL 1 DROP INTO BOTH EYES 2 TIMES A DAY Restasis 0.05 % eye drops in a dropperette INSTILL 1 DROP INTO BOTH EYES 2 TIMES A DAY No Restasis 0.05 % eye drops in a dropperett e INSTILL 1 DROP INTO BOTH EYES 2 TIMES A DAY [facility] sildenafil 100 mg tablet TAKE 1 TABLET BY MOUTH EVERY 72 HOURS NEEDED sildenafil 100 mg tablet TAKE 1 TABLET BY MOUTH EVERY 72 HOURS NEEDED No sildenafil 100 mg tablet TAKE 1 TABLET BY MOUTH EVERY 72 HOURS NEEDED [facility] Synjardy XR 12.5 mg-1,000 mg tablet, extended release TAKE 2 TABLETS BY MOUTH ONCE DAILY IN THE MORNING Synjardy XR 12.5 mg-1,000 mg tablet, extended release TAKE 2 TABLETS BY MOUTH ONCE DAILY IN THE MORNING No Synjardy XR 12.5 mg-1,000 mg tablet, extended release TAKE 2 TABLETS BY MOUTH ONCE DAILY IN THE MORNING [facility] Accu-Chek Fastclix Lancet Drum Accu-Chek Fastclix Lancet Drum No Accu-Chek Fastclix Lancet Drum [facility] Accu-Chek FastClix Lancing Device Accu-Chek FastClix Lancing Device No Accu-Chek FastClix Lancing Device [facility] Accu-Chek Guide Glucose Meter Accu-Chek Guide Glucose Meter No Accu-Chek Guide Glucose Meter [facility] Accu-Chek Guide test strips Take 2 strips every day by miscell. route for 90 days. Accu-Chek Guide test strips Take 2 strips every day by miscell. route for 90 days. No 2strip( s) Q1D Accu-Chek Guide test strips Take 2 strips every day by miscell. route for 90 days. [facility] azelastine 0.05 % eye drops azelastine 0.05 % eye drops No azelastine 0.05 % eye drops [facility] fluticasone propionate 50 mcg/actuati on nasal spray,suspe nsion fluticasone propionate 50 mcg/actuati on nasal spray,suspe nsion No fluticason e propionate 50 mcg/actuat ion nasal spray,susp ension [facility] losartan 100 mg tablet TAKE 1 TABLET BY MOUTH EVERY DAY losartan 100 mg tablet TAKE 1 TABLET BY MOUTH EVERY DAY No losartan 100 mg tablet TAKE 1 TABLET BY MOUTH EVERY DAY [facility] losartan 100 mg-hydrochl orothiazide 12.5 mg tablet Take 1 tablet every day by oral route for 90 days. losartan 100 mg-hydrochl orothiazide 12.5 mg tablet Take 1 tablet every day by oral route for 90 days. No 1 Q1D losartan 100 mg-hydroch lorothiazi de 12.5 mg tablet Take 1 tablet every day by oral route for 90 days. [facility] lovastatin 10 mg tablet Take 1 tablet every day by oral route in the evening for 90 days. lovastatin 10 mg tablet Take 1 tablet every day by oral route in the evening for 90 days. No 1 Q1D lovastatin 10 mg tablet Take 1 tablet every day by oral route in the evening for 90 days. [facility] metformin ER 500 mg 24 hr tablet,exte nded release Take 2 tablets twice a day by oral route. metformin ER 500 mg 24 hr tablet,exte nded release Take 2 tablets twice a day by oral route. No 2 BID metformin ER 500 mg 24 hr tablet,ext ended release Take 2 tablets twice a day by oral route. [facility] pioglitazon e 15 mg tablet TAKE 1 TABLET BY MOUTH EVERY DAY pioglitazon e 15 mg tablet TAKE 1 TABLET BY MOUTH EVERY DAY No pioglitazo ne 15 mg tablet TAKE 1 TABLET BY MOUTH EVERY DAY [facility] sildenafil 100 mg tablet TAKE 1 TABLET BY MOUTH EVERY 72 HOURS NEEDED sildenafil 100 mg tablet TAKE 1 TABLET BY MOUTH EVERY 72 HOURS NEEDED No sildenafil 100 mg tablet TAKE 1 TABLET BY MOUTH EVERY 72 HOURS NEEDED [facility] Accu-Chek Fastclix Lancet Drum Accu-Chek Fastclix Lancet Drum No Accu-Chek Fastclix Lancet Drum [facility] Accu-Chek FastClix Lancing Device Accu-Chek FastClix Lancing Device No Accu-Chek FastClix Lancing Device [facility] Accu-Chek Guide Glucose Meter Accu-Chek Guide Glucose Meter No Accu-Chek Guide Glucose Meter [facility] Accu-Chek Guide test strips USE DIRECTED THREE TIMES DAILY Accu-Chek Guide test strips USE DIRECTED THREE TIMES DAILY No Accu-Chek Guide test strips USE DIRECTED THREE TIMES DAILY [facility] azelastine 0.05 % eye drops azelastine 0.05 % eye drops No azelastine 0.05 % eye drops [facility] famotidine 20 mg tablet TAKE 1 TABLET BY MOUTH EVERY 12 HOURS famotidine 20 mg tablet TAKE 1 TABLET BY MOUTH EVERY 12 HOURS No famotidine 20 mg tablet TAKE 1 TABLET BY MOUTH EVERY 12 HOURS [facility] fluticasone propionate 50 mcg/actuati on nasal spray,suspe nsion fluticasone propionate 50 mcg/actuati on nasal spray,suspe nsion No fluticason e propionate 50 mcg/actuat ion nasal spray,susp ension [facility] losartan 100 mg tablet TAKE 1 TABLET BY MOUTH EVERY DAY losartan 100 mg tablet TAKE 1 TABLET BY MOUTH EVERY DAY No losartan 100 mg tablet TAKE 1 TABLET BY MOUTH EVERY DAY [facility] lovastatin 10 mg tablet TAKE 1 TABLET BY MOUTH EVERY DAY WITH MEAL lovastatin 10 mg tablet TAKE 1 TABLET BY MOUTH EVERY DAY WITH MEAL No lovastatin 10 mg tablet TAKE 1 TABLET BY MOUTH EVERY DAY WITH MEAL [facility] meloxicam 15 mg tablet meloxicam 15 mg tablet No meloxicam 15 mg tablet [facility] pioglitazon e 15 mg tablet TAKE 1 TABLET BY MOUTH EVERY DAY pioglitazon e 15 mg tablet TAKE 1 TABLET BY MOUTH EVERY DAY No pioglitazo ne 15 mg tablet TAKE 1 TABLET BY MOUTH EVERY DAY [facility] Restasis 0.05 % eye drops in a dropperette INSTILL 1 DROP INTO BOTH EYES 2 TIMES A DAY Restasis 0.05 % eye drops in a dropperette INSTILL 1 DROP INTO BOTH EYES 2 TIMES A DAY No Restasis 0.05 % eye drops in a dropperett e INSTILL 1 DROP INTO BOTH EYES 2 TIMES A DAY [facility] sildenafil 100 mg tablet TAKE 1 TABLET BY MOUTH EVERY 72 HOURS NEEDED sildenafil 100 mg tablet TAKE 1 TABLET BY MOUTH EVERY 72 HOURS NEEDED No sildenafil 100 mg tablet TAKE 1 TABLET BY MOUTH EVERY 72 HOURS NEEDED [facility] Synjardy XR 12.5 mg-1,000 mg tablet, extended release TAKE 2 TABLETS BY MOUTH ONCE DAILY IN THE MORNING Synjardy XR 12.5 mg-1,000 mg tablet, extended release TAKE 2 TABLETS BY MOUTH ONCE DAILY IN THE MORNING No Synjardy XR 12.5 mg-1,000 mg tablet, extended release TAKE 2 TABLETS BY MOUTH ONCE DAILY IN THE MORNING [facility] Vital Signs Vital Name Observation Time Observation Value Comments Suman oswald BMI (Body Mass Index) 2023-03-14 00:00:00 25.9 kg/m2 [facility] Body Weight 2023-03-14 00:00:00 186 [lb_av] [facility] Height 2023-03-14 00:00:00 71 [in_i] [facility] BP Systolic 2023-03-14 00:00:00 166 mm[Hg] [facility] BP Diastolic 2023-03-14 00:00:00 78 mm[Hg] [facility] Systolic blood pressure 2022-08-04 18:00:00 132 mm[Hg] [facility] Diastolic blood pressure 2022-08-04 18:00:00 78 mm[Hg] [facility] Heart rate 2022-08-04 18:00:00 55 /min [facility] Respiratory rate 2022-08-04 18:00:00 16 /min [facility] Oxygen saturation in Arterial blood by Pulse oximetry 2022-08-04 18:00:00 100 /min [facility] Body temperature 2022-08-04 14:52:00 37.28 Ashley [facility] Body height 2022-08-04 14:52:00 180.3 cm [facility] Body weight 2022-08-04 14:52:00 83.915 kg [facility] BMI 2022-08-04 14:52:00 25.80 kg/m2 [facility] BP Diastolic 2022-03-04 00:00:00 77 mm[Hg] [facility] Height 2022-03-04 00:00:00 71 [in_i] [facility] BMI (Body Mass Index) 2022-03-04 00:00:00 25.4 kg/m2 [facility] BP Systolic 2022-03-04 00:00:00 131 mm[Hg] [facility] Body Weight 2022-03-04 00:00:00 182.2 [lb_av] [facility] BP Diastolic 2021-09-02 00:00:00 80 mm[Hg] [facility] Height 2021-09-02 00:00:00 71 [in_i] [facility] BMI (Body Mass Index) 2021-09-02 00:00:00 25.4 kg/m2 [facility] BP Systolic 2021-09-02 00:00:00 134 mm[Hg] [facility] Body Weight 2021-09-02 00:00:00 181.8 [facility]lb_av[facility] Diastolic 2020-08-10 00:00:00 97 mm[Hg] [facility] Height 2020-08-10 00:00:00 71.5 [in_i] [facility] BMI (Body Mass Index) 2020-08-10 00:00:00 26.1 kg/m2 [facility] BP Systolic 2020-08-10 00:00:00 166 mm[Hg] [facility] Body Weight 2020-08-10 00:00:00 190 [lb_av] [facility] BP Diastolic 2020-03-25 00:00:00 84 mm[Hg] [facility] Height 2020-03-25 00:00:00 71.5 [in_i] [facility] BMI (Body Mass Index) 2020-03-25 00:00:00 27 kg/m2 [facility] BP Systolic 2020-03-25 00:00:00 144 mm[Hg] [facility] Body Weight 2020-03-25 00:00:00 196 [lb_av] [facility] Procedures Procedure Date / Time Performed Performing Clinician Source XR RIBS 3 VW RIGHT 2022-08-04 16:58:55 Jarett Wheeler Isabella [facility] NOTICE OF PRIVACY PRACTICES 2022-08-04 14:45:14 Doctor Unassigned, Nicasio [facility] CONSENT/REFUSAL FOR DIAGNOSIS AND TREATMENT 2022-08-04 14:42:56 Doctor Unassigned, Nicasio [facility] Laparoscopic Cholecystectomy [facility] Plan of Care Planned Activity Planned Date Details Comments Source Diagnostic Test Pending 2023-03-14 00:00:00 glucose, fingerstick, blood [code = glucose, fingerstick, blood] [facility] Diagnostic Test Pending 2023-03-14 00:00:00 hemoglobin A1C, fingerstick [code = hemoglobin A1C, fingerstick] [facility] Future Appointment 2023-09-12 00:00:00 Stephen Lim [id number]; [address], [address] Future Appointment 2023-08-28 09:00:00 Yonathan Rubalcava; [address], [address] Encounters Start Date/Time End Date/Time Encounter Type Admission Type Attending Clinicians Care Facility Care Department Encounter ID Source 2023-03-14 00:00:00 2023-03-14 00:00:00 Outpatient Misha VANN [facility] [id number] [facility] 2023-03-14 00:00:00 2023-03-14 00:00:00 Outpatient Misha VANN P [facility] [id number] [facility] 2023-03-14 00:00:00 2023-03-14 00:00:00 Stephen Lim MD: [id number], [address], [place] [address] , Ph. [facility]FP [place] - [facility] [place] - VM_HOU_Shad ow [place] [id number] [facility] 2022-09-02 00:00:00 2022-09-02 00:00:00 Outpatient VFP [facility] [id number] [facility] 2022-08-30 00:00:00 2022-08-30 00:00:00 Outpatient Daniel_T VFP VFP [id number] [facility] 2022-08-30 00:00:00 2022-08-30 00:00:00 Outpatient Daniel_T VFP VFP [id number] [facility] 2022-08-04 09:54:00 2022-08-04 13:09:00 Emergency X ALESIA WHEELER [facility] [place] ERT [id number] [facility] 2022-08-04 09:54:00 2022-08-04 13:09:00 Emergency Alesia Wheeler [facility] [id number] [facility] 2022-05-20 18:00:00 2022-05-20 19:00:00 CAV Leeroy Samsminar [id number] [facility] 2022-05-20 00:00:00 2022-05-20 00:00:00 Outpatient Fulminar_S DMG DMG [id number] [facility] 2022-05-20 00:00:00 2022-05-20 00:00:00 Outpatient Fulminar_S DMG DMG [id number] [facility] 2022-05-20 00:00:00 2022-05-20 00:00:00 Outpatient Fulminar_S DMG DMG [id number] [facility] 2022-03-04 00:00:00 2022-03-04 00:00:00 Outpatient Daniel_T VFP VFP [id number] [facility] R[facility] e 2022-03-04 00:00:00 2022-03-04 00:00:00 Stephen Lim MD: [id number], [address], [place] [address] , Ph. [facility] [facility] [place] - VM_Efren ow [place] [id number] [facility] 2022-03-01 00:00:00 2022-03-01 00:00:00 Outpatient Daniel_T VFP VFP [id number] [facility] 2022-01-03 15:30:00 2022-01-03 16:30:00 CAV Melissa Lucero [id number] [facility] 2021-11-19 03:16:00 2021-11-19 03:16:00 Outpatient DMG [id number] [facility] 2021-09-24 00:00:00 2021-09-24 00:00:00 Outpatient Daniel_T VFP VFP [id number] [facility] 2021-09-23 00:00:00 2021-09-23 00:00:00 Outpatient Daniel_T VFP VFP [id number] [facility] 2021-09-02 12:44:00 2021-09-02 12:44:00 Outpatient Daniel_T VFP VFP [id number] [facility] 2021-09-02 00:00:00 2021-09-02 00:00:00 Stephen Lim MD: [id number] [facility] [address], [place] [address] , Ph. VFP [place] [facility] - VM_Efren barnes [place] [id number] [facility] 2021-08-16 10:35:00 2021-08-16 10:35:00 Outpatient Daniel_T VFP VFP [id number] [facility] 2021-08-16 10:35:00 2021-08-16 10:35:00 Outpatient VFP VFP [id number] [facility] 2021-08-16 10:35:00 2021-08-16 10:35:00 Outpatient VFP VFP [id number] [facility] 2021-08-16 10:35:00 2021-08-16 10:35:00 Outpatient Daniel_T VFP VFP [id number] [facility] 2021-04-19 11:00:00 2021-04-19 11:00:00 Outpatient DMG DMG [id number] [facility] 2020-08-12 06:47:00 2020-08-12 06:47:00 Outpatient Daniel_T VFP VFP [id number] [facility] 2020-08-10 04:42:00 2020-08-10 04:42:00 Outpatient Daniel_T VFP VFP [id number] [facility] 2020-08-10 00:00:00 2020-08-10 00:00:00 Stephen Lim MD: [id number] [facility], [address], [place] [address] , Ph. [place]FP [place] [facility] - VM_ELIZABETHU_Estebangomez [facility] [id number] [facility] 2020-06-25 09:03:00 2020-06-25 09:03:00 Outpatient Daniel_T VFP VFP [id number] [facility] 2020-06-25 09:03:00 2020-06-25 09:03:00 Outpatient Daniel_T VFP VFP [id number] [facility] 2020-06-24 12:33:00 2020-06-24 12:33:00 Outpatient Daniel_T VFP VFP [id number] [facility] 2020-03-30 05:41:00 2020-03-30 05:41:00 Outpatient Daniel_T VFP VFP [id number] [facility] 2020-03-25 04:32:00 2020-03-25 04:32:00 Outpatient Daniel_T VFP VFP [id number] [facility] 2020-03-25 00:00:00 2020-03-25 00:00:00 Stephen Lim MD: [id number] [facility], [facility] [address], [place] [address] , Ph. [facility] [place] [facility] - _GERRY_Onel el [id number] [facility] Results Test Description Test Time Test Comments Results Result Co mments Source [facility] [Mass/volume] in Capillary [id number] 09:34:23* Test Item Value Reference Range Interpretation Comme nts Blood Glucose: mg/dl (test c ode = Blood Glucose: mg/dl) 145 [facility] [id number] 10:39:12* Test Item Value Reference Range Interpretation Comme nts Hemoglobin A1c/Hemoglobin.to arnav in Blood (test code = 4548-4) 6.8 % 5.7-6.4 [facility] [id number] 10:36:38* Test Item Value Reference Range Interpretation Comme nts Hemoglobin A1C Fingerstick: (test code = Hemoglobin A1C Fingerstick:) 6.3 [facility] [Mass/volume] in Capillary [id number] 10:33:49* Test Item Value Reference Range Interpretation Comme nts Blood Glucose: mg/dl (test c ode = Blood Glucose: mg/dl) 188 [facility]- [facility] MAXIFAC W/O [id number] 08:51:00Name: STORMY RODRIGUEZ [facility] : 1955 Age/S: 63 / M [id number] [facility] Unit #: [id number] Loc: [place] [address] Phys: Nik Aguilera III, MD Acct: [id number] Dis Date: Status: REG CLI PHONE #: [phone] Exam Date: 08/03/2018 0805 FAX #: Reason: CHRONIC SINUS UNSPECIFIED LOCATION EXAMS: CPT: [id number] CT MAXIFAC W/O CONTRAST 48617 CT SINUSES WITHOUT IV CONTRAST; CORONAL AND SAGITTAL REFORMATTED VIEWS HISTORY:CHRONIC SINUS UNSPECIFIED LOCATION COMPARISON:None. TECHNIQUE:Axial CT images of the sinuses were obtained with coronal and sagittal reformatted views. Automatedexposure control, iterative reconstruction technique, and/or adjustment of mA and/or kV according to patient's size was utilized for radiation dose reduction. IV CONTRAST: None. Location: U19. FINDINGS: Mild polypoid thickening along the inferior aspects of both maxillary sinuses. Probable mucous retention cyst in the right maxillary sinus measuring 1.9 x 2 cm. There is thickening of the ethmoidsinuses bilaterally with obstruction of both ostiomeatal complexes. [...] sinuses, especially the ethmoid sinuses resulting in obstruc tion of the drainage pathways from the frontal and maxillary sinuses. at 0851 Reported and signed by: Tito Cornelius M.D. PAGE 1 Signed Report (CONTINUED) Name: STORMY RODRIGUEZ [facility] : 1955 Age/S: 63 / M 1 [address] [facility] [place] Unit #: [id number] Loc: [place] [address] Phys: Nik Aguilera III, MD Acct: [id number] Dis Date: Status: REG CLI PHONE #: [phone] Exam Date: 08/03/2018 0805 FAX #: Reason: CHRONIC SINUS UNSPECIFIED LOCATION EXAMS: CPT: [id number] CT MAXIFAC W/O CONTRAST 26844 (Continued) CC: Stephen Lim MD; Nik Aguilera III, MD Technologist:Froylan Alas RT(R)(CT) CTDI:DLP: Trnscb Date/Time: 08/03/2018 (0851) [email or web address] Orig Print D/T: S: 08/03/2018 (0854) CTDI: LIOP:PAGE 2 Signed Report
[2023-06-19 17:53] LABS: SARS-CoV-2 Antigen Rapid Res Positive (Negative)
--- NOTE | 2023-06-19 18:24 | EDPHYS ---
Physician Documentation [facility] Name: Keyur Fuller Age: 68 yrs Sex: Male : 1955 Arrival Date: 06/19/2023 Time: 17:07 Bed IW1 Private MD: ED Physician Jasiel Ingram HPI: 06/19 17:23 This 68 yrs old Black Male presents to ER via Ambulatory with complaints of Covid. cp 17:23 The patient or guardian reports cough, flu symptoms, arthralgias, myalgias. Onset: The cp symptoms/episode began/occurred yesterday. 17:23 Associated signs and symptoms: Pertinent positives: sore throat, cough, chills, body cp aches. Historical: - Allergies: 17:16 No Known Allergies; nj1 - PMHx: 17:16 Diabetes - NIDDM; High Cholesterol; Hypertension; nj1 - PSHx: 17:16 Cholecystectomy; nj1 - Immunization history:: Client reports receiving the 2nd dose of the Covid vaccine. - Social history:: Smoking status: Patient denies any tobacco usage or history of. Smoking status: Patient reports use of chewing tobacco. ROS: 17:25 Constitutional: Positive for body aches, chills, Negative for fever, poor PO intake, cp 17:25 Eyes: Negative for injury, pain, redness, and discharge, cp 17:25 ENT: Positive for sore throat, 17:25 Respiratory: Positive for cough, Negative for shortness of breath, wheezing, 17:25 Abdomen/GI: Negative for abdominal pain, vomiting, diarrhea, constipation, 17:25 Neuro: Positive for headache, Negative for altered mental status, syncope, weakness, 17:25 All other systems are negative, Exam: 17:30 Head/Face: Normocephalic, atraumatic. cp 17:30 Constitutional: The patient appears in no acute distress, alert, awake, non-diaphoretic, non-toxic, well developed, well nourished, 17:30 Eyes: Periorbital structures: appear normal, Conjunctiva: normal, no exudate, no injection, Sclera: no appreciated abnormality, Lids and lashes: appear normal, bilaterally, 17:30 ENT: External ear(s): are unremarkable, Nose: is normal, Mouth: Lips: moist, Oral mucosa: moist, Posterior pharynx: Airway: no evidence of obstruction, patent, erythema, that is mild, exudate, is not appreciated, 17:30 Neck: ROM/movement: Meningeal signs: are not present, nuchal rigidity, is not appreciated, Lymph nodes: no appreciated lymphadenopathy, 17:30 Chest/axilla: Inspection: normal, 17:30 Cardiovascular: Rate: normal, 17:30 Respiratory: the patient does not display signs of respiratory distress, Respirations: normal, no use of accessory muscles, no retractions, labored breathing, is not present, Breath sounds: decreased breath sounds, are not appreciated, stridor, is not appreciated, + upper airway congestion. wheezing: is not appreciated, 17:30 Abdomen/GI: Exam negative for discomfort, distension, guarding, Inspection: abdomen appears normal, 17:30 Back: pain, is absent, ROM is normal, Vital Signs: 17:14 BP 159 / 89; Pulse 80; Resp 18; Temp 99.4; Pulse Ox 100% ; Weight 83.91 kg; Height 5 nj1 ft. 11 in. ; Pain 7/10; 19:04 BP 150 / 81; Pulse 82; Resp 17; Pulse Ox 99% on R/A; nj1 17:14 Body Mass Index 25.80 (83.91 kg, 180.34 cm) nj 17:14 Pain Scale: Adult nj1 MDM: 17:16 Patient medically screened. cp 18:00 Differential diagnosis: viral Infection, bacterial infection, bronchitis, pneumonia cp UTI, gastroenteritis. 18:22 Data reviewed: vital signs, nurses notes, lab test result(s). 18:22 Care significantly affected by the following chronic conditions: Diabetes, cp Hypertension. Counseling: I had a detailed discussion with the patient and/or guardian regarding the historical points, exam findings, and any diagnostic results supporting the discharge/admit diagnosis, lab results, to return to the emergency department if symptoms worsen or persist or if there are any questions or concerns that arise at home. 02 17:19 Order name: SARS RAPID; Complete Time: 18:17 02/12 18:17 Interpretation: Reviewed. 0212 17:19 Order name: Influenza Screen (a \T\ B); Complete Time: 18:17 02 17:19 Order name: Strep; Complete Time: 18:17 02/12 18:17 Interpretation: Reviewed. cp 06/19 17:57 Order name: Throat Culture EDMS Administered Medications: No medications were administered Disposition Summary: 06/19/23 18:23 Discharge Ordered Notes: Location: Home cp Problem: new cp Symptoms: are unchanged cp Condition: Stable cp Diagnosis - SARS-associated coronavirus as the cause of diseases classified elsewhere cp Followup: cp - With: Private Physician - When: 2 - 3 days - Reason: Worsening of condition Discharge Instructions: - Discharge Summary Sheet cp - Aspirin and Your Heart cp - COVID-19 cp - How to Protect Yourself and Others - [facility] (07/02/2021) cp - 10 Things You Can Do to Manage Your COVID-19 Symptoms at Home - [facility] (11/20/2020) cp - COVID-19: Quarantine and Isolation - [facility] (08/04/2021) cp - COVID-19: What to Do If You Are Sick - [facility] (07/27/2021) cp Forms: - Medication Reconciliation Form cp - Thank You Letter cp - Antibiotic Education cp - Prescription Opioid Use cp - Patient Portal Instructions cp - Leadership Thank You Letter cp Prescriptions: - Paxlovid 300 mg (150 mg x 2)-100 mg Oral Tablet, Dose Pack - take 1 dose pack ORAL route per package directions for 5 days; 30 tablet; cp Refills: 0, Product Selection Permitted Signatures: Dispatcher [employer] EDMS Herb Monteiro PA PA cp Jaco, Norma RN RN nj1 Corrections: (The following items were deleted from the chart) 18:22 15:30 Constitutional: The patient appears in no acute distress, alert, awake, cp non-diaphoretic, non-toxic, well developed, well nourished, cp 18:22 15:30 Head/Face: Normocephalic, atraumatic. cp cp 18:22 15:30 Eyes: Periorbital structures: appear normal, Conjunctiva: normal, no exudate, no cp injection, Sclera: no appreciated abnormality, Lids and lashes: appear normal, bilaterally, cp 18:22 15:30 ENT: External ear(s): are unremarkable, Nose: is normal, Mouth: Lips: moist, Oral cp mucosa: moist, Posterior pharynx: Airway: no evidence of obstruction, patent, erythema, that is mild, exudate, is not appreciated, cp 18:22 15:30 Neck: ROM/movement: Meningeal signs: are not present, nuchal rigidity, is not cp appreciated, Lymph nodes: no appreciated lymphadenopathy, cp 18:22 15:30 Chest/axilla: Inspection: normal, cp cp 18:22 15:30 Cardiovascular: Rate: normal, cp cp 18:22 15:30 Respiratory: the patient does not display signs of respiratory distress, cp Respirations: normal, no use of accessory muscles, no retractions, labored breathing, is not present, Breath sounds: decreased breath sounds, are not appreciated, stridor, is not appreciated, + upper airway congestion. wheezing: is not appreciated, cp 18:22 15:30 Abdomen/GI: Exam negative for discomfort, distension, guarding, Inspection: cp abdomen appears normal, cp 18:22 15:30 Back: pain, is absent, ROM is normal, cp cp 06/20 03:17 02/12 17:23 Onset: The symptoms/episode began/occurred this morning, cp cp
--- NOTE | 2023-06-19 18:24 | ER ---
Nurse's Notes [facility] Name: Keyur Fuller Age: 68 yrs Sex: Male : 1955 Arrival Date: 06/19/2023 Time: 17:07 Bed IW1 Private MD: Diagnosis: SARS-associated coronavirus as the cause of diseases classified elsewhere Presentation: 06/19 17:14 Chief complaint: Patient states: Chills, cough, runny nose and headache since nj1 yesterday. positive for COVID. Coronavirus screen: Vaccine status: Patient reports receiving the 2nd dose of the covid vaccine. Ebola Screen: Patient denies travel to an Ebola-affected area in the 21 days before illness onset. Initial Sepsis Screen: Does the patient meet any 2 criteria? No. Patient's initial sepsis screen is negative. Does the patient have a suspected source of infection? No. Patient's initial sepsis screen is negative. Risk Assessment: Do you want to hurt yourself or someone else? Patient reports no desire to harm self or others. Onset of symptoms was June 18, 2023. 17:14 Method Of Arrival: Ambulatory [facility] 17:14 Acuity: MARKO 4 [facility] Triage Assessment: 17:15 General: Appears in no apparent distress. comfortable, Behavior is calm, cooperative, nj appropriate for age. 17:15 Neuro: No deficits noted. Cardiovascular: No deficits noted. Respiratory: No deficits nj1 noted. Historical: - Allergies: 17:16 No Known Allergies; nj1 - PMHx: 17:16 Diabetes - NIDDM; High Cholesterol; Hypertension; nj1 - PSHx: 17:16 Cholecystectomy; nj1 - Immunization history:: Client reports receiving the 2nd dose of the Covid vaccine. - Social history:: Smoking status: Patient denies any tobacco usage or history of. Smoking status: Patient reports use of chewing tobacco. Vital Signs: 17:14 BP 159 / 89; Pulse 80; Resp 18; Temp 99.4; Pulse Ox 100% ; Weight 83.91 kg; Height 5 nj1 ft. 11 in. ; Pain 7/10; 19:04 BP 150 / 81; Pulse 82; Resp 17; Pulse Ox 99% on R/A; nj1 17:14 Body Mass Index 25.80 (83.91 kg, 180.34 cm) [facility] 17:14 Pain Scale: Adult [facility] ED Course: 17:10 Patient arrived in ED. mg5 17:11 Herb Monteiro PA is PHCP. cp 17:11 Jasiel Ingram MD is Attending Physician. cp 17:16 Triage completed. nj1 17:16 Arm band placed on right wrist. nj1 17:29 Strep Sent. nj1 17:29 Influenza Screen (a \T\ B) Sent. nj1 17:29 SARS RAPID Sent. nj1 19:04 Provided Education on: discharge instructions. nj1 19:05 No provider procedures requiring assistance completed. Patient did not have IV access [facility] during this emergency room visit. Administered Medications: No medications were administered Outcome: 18:23 Discharge ordered by . cp 19:04 Discharged to home ambulatory, nc1 19:04 Condition: stable 19:04 Discharge instructions given to patient, Instructed on discharge instructions, follow up and referral plans. medication usage, Demonstrated understanding of instructions, follow-up care, medications, Prescriptions given X 1, 19:05 Patient left the ED. [facility] Signatures: Herb Monteiro PA PA cp Jaco, Norma, RN RN [facility] [place] [id number]
[2023-06-19 19:09] VITALS: TEMP 99.4
[2023-06-19 19:34] VITALS: BP 150/81; O2SAT 99
== END ==
LOC: ER 17:07
DX: U07.1 COVID-19 (principal); E11.9 Type 2 diabetes mellitus without complications; I10 Essential (primary) hypertension; F17.220 Nicotine dependence, chewing tobacco, uncomplicated
CPT/HCPCS: 36415; 87070; 87081; 87804; 87811; 99283

== ENCOUNTER 2024-06-13 08:36 | Emergency (ER) | payer OTHER ==
--- OUTSIDE RECORDS SUMMARY | 2024-06-13 08:39 | XMS REPORT | Continuity of Care Document ---
Author Name Unknown Address [address] [facility] [address] [place] [address] [facility] thconnect Address [address] [facility] [address] [place] [address] Care Team Providers Care Mother Repairer Name Role Phone SEAN OWENS Primary Care Physician Unavailab linette Sigala Attending Clinician Unavailable ALESIA MCKOY Attending Clinician Unavaila Alesia Montenegro Attending Clinician Leeroy Lobato Attending Clinician Rico Attending Clinician Unavailable Melissa Lucero Attending Clinician [phone] Zakiya Admitting Clinician Unavailable ALESIA MCKOY Admitting Clinician Unavaila debbie Gómez Admitting Clinician Unavailable Payers Payer Name Policy Type Policy Number Effective Date Expirati on Date Source FORMERLY [facility] (MEDICARE REPLACEMENT HMO) [id number] 2021 00:00:00 [employer] MEDICARE ADVANTAGE PLAN [id number] 2021 00:00:00 [place] [id number] 2019 00:00:00 Problems Condition Name Condition Details Condition Category Status Onset Date Resolution Date Last Treatment Date Treating Clinician Comments Source Body mass index 25-29 - overweight Body Mass Index 25-29 - Overweight Problem Active 2021-05 00:00: 00 [facility] 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 Active 2021-05 00:00: 00 [facility] Type 2 diabetes mellitus Type 2 Diabetes Mellitus Problem Active 08-10 00:00: 00 [facility] Overweight Overweight Problem Active 12-12 00:00: 00 [facility] Hyperlipid emia Hyperlipid emia Problem Active 2016-05 00:00: 00 [facility] Cataract Cataract Problem Active 2016-05 00:00: 00 [facility] Essential hypertensi on Essential Hypertensi on Problem Active 2016-05 00:00: 00 [facility] Seasonal allergic rhinitis Seasonal Allergic Rhinitis Problem Active 2016-05 00:00: 00 [facility] Primary erectile dysfunctio n Primary Erectile Dysfunctio n Problem Active 2016-05 00:00: 00 [facility] Crystallin e lens finding Crystallin e Lens Finding Problem Active 2016-05 00:00: 00 [facility] Family history of cardiac disorder Family History of Cardiac Disorder Problem Active 2016-05 00:00: 00 [facility] 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 Active 2016-05 00:00: 00 [facility] Impotence Impotence Problem Active 2016-05 00:00: 00 [facility] Hypertensi ve disorder Hypertensi ve Disorder Problem Active 2016-05 00:00: 00 [facility] Allergies, Adverse Reactions, Alerts Allergy Name Allergy Type Status Severity Reaction(s) Onset Date Inactive Date Treating Clinician Comments Source NO KNOWN ALLERGIE S Drug Class Active [facility] Social History Social Habit Start Date Stop Date Quantity Comments Source Exposure to SARS-CoV-2 (event) 2022-07-25 00:00:00 2022-08-04 09:51:00 Not sure [facility] Sex Ass[birth year] At 1955 00:00:00 1955 00:00:00 [facility] Smoking Status Start Date Stop Date Source Smoker, Current Status Unknown [facility] Tobacco smoking consumption unknown [facility] Medications Ordered Medication Name Filled Medication Name Start Date Stop Date Current Medication? Ordering Clinician Indication Dosage Frequency Signature (SIG) Comments Components Source acetaminoph en (TYLENOL) tablet 1,000 mg 08-04 17:30: 00 08-04 16:48 :00 No 1000mg 1,000 mg, Oral, ONCE, 1 dose, On Mary Lou 08/04/22 at 1230, Routine [facility] dexamethaso ne (DECADRON PHOSPHATE) injection 10 mg 08-04 17:30: 00 08-04 17:30 :00 No 10mg 10 mg, Oral, ONCE, 1 dose, On Mary Lou 08/04/22 at 1230, Routine [facility] ketorolac (TORADOL) injection 30 mg 08-04 17:15: 00 08-04 16:50 :00 No 30mg 30 mg, Intramuscu lar, ONCE, 1 dose, On Mary Lou 08/04/22 at 1215, Routine [facility] Diclofenac Epolamine 1.3 % patch 08-04 00:00: 00 08-12 04:59 :00 No [id number] Apply to skin 2 (two) times daily for 7 days. [facility] methocarbam oL 500 mg tablet 08-04 00:00: 00 08-12 04:59 :00 No [id number] 500mg Take 1 tablet by mouth 4 (four) times daily for 7 days. [facility] ondansetron (ZOFRAN) 4 mg tablet 09-08 00:00: 00 Yes [id number] 4mg Take 1 tablet by mouth every 8 (eight) hours as needed for Nausea and Vomiting (N/V). [facility] losartan potassium (LOSARTAN ORAL) 09-07 22:52: 31 Yes Take by mouth. [facility] Accu-Chek Fastclix Lancet Drum Accu-Chek Fastclix Lancet Drum No Accu-Chek Fastclix Lancet Drum [facility] Accu-Chek FastClix Lancing Device Accu-Chek FastClix Lancing Device No Accu-Chek FastClix Lancing Device [facility] Accu-Chek Guide Glucose Meter Accu-Chek Guide Glucose Meter No Accu-Chek Guide Glucose Meter [facility] Accu-Chek Guide test strips Take 2 strips every day by miscell. route for 90 days. Accu-Chek Guide test strips Take 2 strips every day by miscell. route for 90 days. No 2strip( s) Q1D Accu-Chek Guide test strips Take 2 strips every day by miscell. route for 90 days. [facility] azelastine 0.05 % eye drops azelastine 0.05 % eye drops No azelastine 0.05 % eye drops [facility] fluticasone propionate 50 mcg/actuati on nasal spray,suspe nsion fluticasone propionate 50 mcg/actuati on nasal spray,suspe nsion No fluticason e propionate 50 mcg/actuat ion nasal spray,susp ension [facility] losartan 100 mg tablet TAKE 1 TABLET BY MOUTH EVERY DAY losartan 100 mg tablet TAKE 1 TABLET BY MOUTH EVERY DAY No losartan 100 mg tablet TAKE 1 TABLET BY MOUTH EVERY DAY [facility] lovastatin 10 mg tablet Take 1 tablet every day by oral route in the evening for 90 days. lovastatin 10 mg tablet Take 1 tablet every day by oral route in the evening for 90 days. No 1 Q1D lovastatin 10 mg tablet Take 1 tablet every day by oral route in the evening for 90 days. [facility] pioglitazon e 15 mg tablet TAKE 1 TABLET BY MOUTH EVERY DAY pioglitazon e 15 mg tablet TAKE 1 TABLET BY MOUTH EVERY DAY No pioglitazo ne 15 mg tablet TAKE 1 TABLET BY MOUTH EVERY DAY [facility] sildenafil 100 mg tablet TAKE 1 TABLET BY MOUTH EVERY 72 HOURS NEEDED sildenafil 100 mg tablet TAKE 1 TABLET BY MOUTH EVERY 72 HOURS NEEDED No sildenafil 100 mg tablet TAKE 1 TABLET BY MOUTH EVERY 72 HOURS NEEDED [facility] losartan 100 mg-hydrochl orothiazide 12.5 mg tablet Take 1 tablet every day by oral route for 90 days. losartan 100 mg-hydrochl orothiazide 12.5 mg tablet Take 1 tablet every day by oral route for 90 days. No 1 Q1D losartan 100 mg-hydroch lorothiazi de 12.5 mg tablet Take 1 tablet every day by oral route for 90 days. [facility] cyclobenzap rine 10 mg tablet TAKE 1 TABLET BY MOUTH TWICE A DAY cyclobenzap rine 10 mg tablet TAKE 1 TABLET BY MOUTH TWICE A DAY No cyclobenza tatum 10 mg tablet TAKE 1 TABLET BY MOUTH TWICE A DAY [facility] glipizide ER 5 mg tablet, extended release 24 hr Take 1 tablet twice a day by oral route for 90 days. glipizide ER 5 mg tablet, extended release 24 hr Take 1 tablet twice a day by oral route for 90 days. No 1 BID glipizide ER 5 mg tablet, extended release 24 hr Take 1 tablet twice a day by oral route for 90 days. [facility] metformin ER 500 mg tablet,exte nded release 24 hr TAKE 2 TABLETS BY MOUTH TWICE A DAY metformin ER 500 mg tablet,exte nded release 24 hr TAKE 2 TABLETS BY MOUTH TWICE A DAY No metformin ER 500 mg tablet,ext ended release 24 hr TAKE 2 TABLETS BY MOUTH TWICE A DAY [facility] Paxlovid 300 mg (150 mg x 2)-100 mg tablets in a dose pack TAKE 3 TABLETS TOGETHER (TWO 150 MG NIRMATRELVI R TABLETS AND ONE 100 MG RITONAVIR TABLET) BY MOUTH TWICE DAILY FOR 5 DAYS. Paxlovid 300 mg (150 mg x 2)-100 mg tablets in a dose pack TAKE 3 TABLETS TOGETHER (TWO 150 MG NIRMATRELVI R TABLETS AND ONE 100 MG RITONAVIR TABLET) BY MOUTH TWICE DAILY FOR 5 DAYS. No Paxlovid 300 mg (150 mg x 2)-100 mg tablets in a dose pack TAKE 3 TABLETS TOGETHER (TWO 150 MG NIRMATRELV IR TABLETS AND ONE 100 MG RITONAVIR TABLET) BY MOUTH TWICE DAILY FOR 5 DAYS. [facility] metoclopram aleksey 10 mg tablet TAKE 3 TABLETS BY MOUTH DIRECTED PER YOUR COLONOSCOPY PREP PACKET metoclopram aleksey 10 mg tablet TAKE 3 TABLETS BY MOUTH DIRECTED PER YOUR COLONOSCOPY PREP PACKET No metoclopra mide 10 mg tablet TAKE 3 TABLETS BY MOUTH DIRECTED PER YOUR COLONOSCOP Y PREP PACKET [facility] OneTouch Delica Plus Lancet 30 gauge USE DIRECTED. OneTouch Delica Plus Lancet 30 gauge USE DIRECTED. No OneTouch Delica Plus Lancet 30 gauge USE DIRECTED. [facility] OneTouch Ultra2 Meter USE DIRECTED. OneTouch Ultra2 Meter USE DIRECTED. No OneTouch Ultra2 Meter USE DIRECTED. [facility] OneTouch UltraSoft 2 Lancet CHECK THREE TIMES DAILY OneTouch UltraSoft 2 Lancet CHECK THREE TIMES DAILY No OneTouch UltraSoft 2 Lancet CHECK THREE TIMES DAILY [facility] sodium,pota ssium,mag sulfates 17.5 gram-3.13 gram-1.6 gram oral soln TAKE BY MOUTH DIRECTED USED DIRECTED BY YOUR COLONOSCOPY PACKET INSTRUCTION S sodium,pota ssium,mag sulfates 17.5 gram-3.13 gram-1.6 gram oral soln TAKE BY MOUTH DIRECTED USED DIRECTED BY YOUR COLONOSCOPY PACKET INSTRUCTION S No sodium,pot assium,mag sulfates 17.5 gram-3.13 gram-1.6 gram oral soln TAKE BY MOUTH DIRECTED USED DIRECTED BY YOUR COLONOSCOP Y PACKET INSTRUCTIO NS [facility] Vital Signs Vital Name Observation Time Observation Value Comments S ource BP Diastolic 2023-12-15 00:00:00 77 mm[Hg] [facility] Practice BP Systolic 2023-12-15 00:00:00 123 mm[Hg] [facility] Body Weight 2023-12-15 00:00:00 189.6 [lb_av] [facility] BMI (Body Mass Index) 2023-12-15 00:00:00 26.4 kg/m2 [facility] Height 2023-12-15 00:00:00 71 [in_i] [facility] Height 2023-08-28 00:00:00 71 [in_i] [facility] BP Diastolic 2023-08-28 00:00:00 80 mm[Hg] [facility] Practice BP Systolic 2023-08-28 00:00:00 194 mm[Hg] [facility] Body Weight 2023-08-28 00:00:00 188.8 [lb_av] [facility] BMI (Body Mass Index) 2023-08-28 00:00:00 26.3 kg/m2 [facility] BMI (Body Mass Index) 2023-03-14 00:00:00 25.9 kg/m2 [facility] Body Weight 2023-03-14 00:00:00 186 [lb_av] [facility] Height 2023-03-14 00:00:00 71 [in_i] [facility] BP Systolic 2023-03-14 00:00:00 166 mm[Hg] [facility] BP Diastolic 2023-03-14 00:00:00 78 mm[Hg] [facility] Systolic blood pressure 2022-08-04 18:00:00 132 mm[Hg] [facility] Diastolic blood pressure 2022-08-04 18:00:00 78 mm[Hg] [facility] Heart rate 2022-08-04 18:00:00 55 /min [facility] Respiratory rate 2022-08-04 18:00:00 16 /min [facility] Oxygen saturation in Arterial blood by Pulse oximetry 2022-08-04 18:00:00 100 /min [facility] Body temperature 2022-08-04 14:52:00 37.28 Ashley [facility] Body height 2022-08-04 14:52:00 180.3 cm [facility] Body weight 2022-08-04 14:52:00 83.915 kg [facility] BMI 2022-08-04 14:52:00 25.80 kg/m2 [facility] BP Diastolic 2022-03-04 00:00:00 77 mm[Hg] [facility] Height 2022-03-04 00:00:00 71 [in_i] [facility] BMI (Body Mass Index) 2022-03-04 00:00:00 25.4 kg/m2 [facility] ly Practice BP Systolic 2022-03-04 00:00:00 131 mm[Hg] [facility] Body Weight 2022-03-04 00:00:00 182.2 [lb_av] [facility] BP Diastolic 2021-09-02 00:00:00 80 mm[Hg] [facility] Height 2021-09-02 00:00:00 71 [in_i] [facility] BMI (Body Mass Index) 2021-09-02 00:00:00 25.4 kg/m2 [facility] ly Practice BP Systolic 2021-09-02 00:00:00 134 mm[Hg] [facility] Body Weight 2021-09-02 00:00:00 181.8 [lb_av] [facility] BP Diastolic 2020-08-10 00:00:00 97 mm[Hg] [facility] Height 2020-08-10 00:00:00 71.5 [in_i] [facility] BMI (Body Mass Index) 2020-08-10 00:00:00 26.1 kg/m2 [facility] ly Practice BP Systolic 2020-08-10 00:00:00 166 mm[Hg] [facility] Body Weight 2020-08-10 00:00:00 190 [lb_av] [facility] BP Diastolic 2020-03-25 00:00:00 84 mm[Hg] [facility] Height 2020-03-25 00:00:00 71.5 [in_i] [facility] BMI (Body Mass Index) 2020-03-25 00:00:00 27 kg/m2 [facility] Practice BP Systolic 2020-03-25 00:00:00 144 mm[Hg] [facility] Body Weight 2020-03-25 00:00:00 196 [lb_av] [facility] Practice Procedures Procedure Date / Time Performed Performing Clinician Source XR RIBS 3 VW RIGHT 2022-08-04 16:58:55 Jarett Mckoy [facility] NOTICE OF PRIVACY PRACTICES 2022-08-04 14:45:14 Doctor Unassigned, [place] [facility] CONSENT/REFUSAL FOR DIAGNOSIS AND TREATMENT 2022-08-04 14:42:56 Doctor Unassigned, [place] [facility] Laparoscopic Cholecystectomy [facility] Encounters Start Date/Time End Date/Time Encounter Type Admission Type Attending Clinicians Care Facility Care Department Encounter ID Source 2023-12-15 00:00:00 2023-12-15 00:00:00 Stephen Lim MD: [id number], [address], [place] [address] , Ph. [place] [facility] - [place] - VM_HOU_[place] [id number] [facility] 2023-08-28 00:00:00 2023-08-28 00:00:00 Stephen Lim MD: [id number], [place] [address] , Ph. [place] [facility] [place] VM_HOU_[place] [id number] [facility] 2023-08-02 00:00:00 2023-08-02 00:00:00 Outpatient Daniel_T_HO U_MD VFP VFP [id number] [facility] 2023-07-21 00:00:00 2023-07-21 00:00:00 Outpatient Daniel_T_HO U_MD VFP VFP [id number] [facility] 2023-03-14 00:00:00 2023-03-14 00:00:00 Outpatient Daniel_T_HO U_MD VFP VFP [id number] [facility] 2023-03-14 00:00:00 2023-03-14 00:00:00 Outpatient Daniel_T_HO U_MD VFP VFP [id number] [facility] 2023-03-14 00:00:00 2023-03-14 00:00:00 Stephen Lim MD: [id number], [facility] [address], [place] [address] , Ph. [place] [facility] [place] VM_HOU_[place] [id number] [facility] 2022-09-02 00:00:00 2022-09-02 00:00:00 Outpatient VFP VFP [id number] [facility] 2022-08-30 00:00:00 2022-08-30 00:00:00 Outpatient Daniel_T VFP VFP [id number] [facility] 2022-08-30 00:00:00 2022-08-30 00:00:00 Outpatient Daniel_T VFP VFP [id number] [facility] e 2022-08-04 09:54:00 2022-08-04 13:09:00 Emergency X ALESIA MCKOY [facility] ERT [id number] [facility] 2022-08-04 09:54:00 2022-08-04 13:09:00 Emergency Alesia Mckoy F [facility] [id number] [facility] 2022-05-20 18:00:00 2022-05-20 19:00:00 CAV Leeroy Flaquitaminar [id number] [facility] 2022-05-20 00:00:00 2022-05-20 00:00:00 [place] [id number] [facility] 2022-05-20 00:00:00 2022-05-20 00:00:00 Outpatient Fulminar_S DMG DMG [id number] [facility] 2022-05-20 00:00:00 2022-05-20 00:00:00 Outpatient Fulminar_S DMG DMG [id number] [facility] 2022-03-04 00:00:00 2022-03-04 00:00:00 Outpatient Daniel_T VFP VFP [id number] [facility] e 2022-03-04 00:00:00 2022-03-04 00:00:00 Stephen Lim MD: [id number], [address], [place] [address] , Ph. [place] [facility] [place] [facility]_[place] [id number] [facility] 2022-03-01 00:00:00 2022-03-01 00:00:00 Outpatient Daniel_T VFP VFP [id number] [facility] 2022-01-03 15:30:00 2022-01-03 16:30:00 MARIMAR Lucero [id number] [facility] 2021-11-19 03:16:00 2021-11-19 03:16:00 Outpatient DMG DMG [id number] [facility] 2021-09-24 00:00:00 2021-09-24 00:00:00 Outpatient Daniel_T VFP VFP [id number] [facility] 2021-09-23 00:00:00 2021-09-23 00:00:00 Outpatient Daniel_T VFP VFP [id number] [facility] 2021-09-02 12:44:00 2021-09-02 12:44:00 Outpatient Daniel_T VFP VFP [id number] [facility] 2021-09-02 00:00:00 2021-09-02 00:00:00 Stephen Lim MD: [id number], [address], [place] [address] , Ph. [place]FP [place] - [facility] - VM_HOU_[place] [id number] [facility] 2021-08-16 10:35:00 2021-08-16 10:35:00 Outpatient Daniel_T VFP VFP [id number] [facility] 2021-08-16 10:35:00 2021-08-16 10:35:00 Outpatient VFP VFP [id number] [facility] 2021-08-16 10:35:00 2021-08-16 10:35:00 Outpatient VFP VFP [id number] [facility] 2021-08-16 10:35:00 2021-08-16 10:35:00 Outpatient Daniel_T VFP VFP [id number] [facility] 2021-04-19 11:00:00 2021-04-19 11:00:00 Outpatient DMG DMG [id number] [facility] 2020-08-12 06:47:00 2020-08-12 06:47:00 Outpatient Daniel_T VFP VFP [id number] [facility] 2020-08-10 04:42:00 2020-08-10 04:42:00 Outpatient Daniel_T VFP VFP [id number] [facility] 2020-08-10 00:00:00 2020-08-10 00:00:00 Stephen Lim MD: [id number] [facility], [address], [place] [address] , Ph. [place]FP [place] - [facility] - _HOU_René [place] [id number] [facility] 2020-06-25 09:03:00 2020-06-25 09:03:00 Outpatient Daniel_T VFP VFP [id number] [facility] 2020-06-25 09:03:00 2020-06-25 09:03:00 Outpatient Daniel_T VFP VFP [id number] [facility] 2020-06-24 12:33:00 2020-06-24 12:33:00 Outpatient Daniel_T VFP VFP [id number] [facility] 2020-03-30 05:41:00 2020-03-30 05:41:00 Outpatient Daniel_T VFP VFP [id number] [facility] 2020-03-25 04:32:00 2020-03-25 04:32:00 Outpatient Daniel_T VFP VFP [id number] [facility] 2020-03-25 00:00:00 2020-03-25 00:00:00 Stehpen Lim MD: [id number] [facility], [facility] [address], [place] [address] , Ph. [facility] [place] [facility] - _GERRY_Onel ladnaverde [id number] [facility] Results Test Description Test Time Test Comments Results Result Co mments Source [facility] in Capillary [id number] 09:04:09* Test Item Value Reference Range Interpretation Comme nts Blood Glucose: mg/dl (test c ode = Blood Glucose: mg/dl) 131 [facility] measurement device [id number] 09:38:48* Test Item Value Reference Range Interpretation Comme nts Hemoglobin A1c/Hemoglobin.to arnav in Blood (test code = 4548-4) 6.7 % 4.0-6.4 [facility] PracticeGlucose [Mass/volume] in Capillary [id number] 09:34:23* Test Item Value Reference Range Interpretation Comme nts Blood Glucose: mg/dl (test c ode = Blood Glucose: mg/dl) 145 [facility] device [id number] 10:39:12* Test Item Value Reference Range Interpretation Comme nts Hemoglobin A1c/Hemoglobin.to arnav in Blood (test code = 4548-4) 6.8 % 5.7-6.4 [facility] A[facility] device [id number] 10:36:38* Test Item Value Reference Range Interpretation Comme nts Hemoglobin A1C Fingerstick: (test code = Hemoglobin A1C Fingerstick:) 6.3 [facility] [Mass/volume] in Capillary [id number] 10:33:49* Test Item Value Reference Range Interpretation Comme nts Blood Glucose: mg/dl (test c ode = Blood Glucose: mg/dl) 188 [facility]- CT MAXIFAC W/O [id number] 08:51:00Name: STORMY RODRIGUEZ [facility] : 1955 Age/S: 63 / M [id number] [facility] Unit #: [id number] Loc: [place] [address] Phys: Nik Aguilera III, MD Acct: [id number] Dis Date: Status: REG CLI PHONE #: [phone] Exam Date: 08/03/2018 08 FAX #: Reason: CHRONIC SINUS UNSPECIFIED LOCATION EXAMS: CPT: [id number] CT MAXIFAC W/O CONTRAST [address]98 CT SINUSES WITHOUT IV CONTRAST; CORONAL AND [...] significant nasal septal deviation. There may be somemild thickening of the inferior nasal turbinates. The orbits appear intact. No retrobulbar hemorrhage or mass. No CT evidence of extraocular muscle entrapment, correlate clinically. IMPRESSION: Mild sinus disease of the maxillary ethmoid sinuses, especially the ethmoid sinuses resulting in obstructi on of the drainage pathways from the frontal and maxillary sinuses. at 0851 Reported and signed by: Tito Cornelius M.D.PAGE 1 Signed Report (CONTINUED) Name: STORMY RODRIGUEZ : 1955 Age/S: 63 / M [address] [place] Unit #: [id number] Loc: [place] [address] Phys: Nik Aguilera III, MD Acct: [id number] Dis Date: Status: REG CLI PHONE #: [phone] Exam Date: 08/03/2018 0805 FAX #: Reason: CHRONIC SINUS UNSPECIFIED LOCATION EXAMS: CPT: [id number] CT MAXIFAC W/O CONTRAST 84525 (Continued) CC: Stephen Lim MD; Nik Aguilera III, MD Technologist:Froylan Alas, RT(R)(CT) CTDI: DLP: Trnscb Date/Time: 08/03/2018 (0851) [email or web address] Orig Print D/T: S: 08/03/2018 (0854) CTDI: DLP: PAGE 2 Signed Report
--- NOTE | 2024-06-13 09:30 | RAD REPORT ---
EXAM: C Spine Wo Con HISTORY: Neck pain. COMPARISON: 2022 TECHNIQUE: Multiple contiguous axial images were obtained in a CT of the cervical spine without contr ast. Sagittal and coronal reformats were performed. One or more of the following dose reduction techniques were used: Automated exposure control, adjustment of the mA and kV according to patient si ze, and iterative reconstruction. Unless otherwise specified, incidental findings do not require dedicated imaging follow-up. FINDINGS: Osteophytes and facet hypertrophy C2-3 results in moderate narrowing of the left neural foramina. Disc bulge and facet hypertrophy C3-4 results in moderate narrowing left neural foramina. Mild to mod erate narrowing right Mild spondylosis C4-5 Disc bulge and osteophytes C5-6. Mild narrowing of the thecal sac. Moderate narrowing of the right ne ural foramina. Mild spondylosis C6-7 and C7-T1. Slight anterior subluxation C4 on C5. Progression in posterior subluxation C5 on C6 which measures 3 mm. 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
--- NOTE | 2024-06-13 09:31 | RAD REPORT ---
Procedure: Chest Single View HISTORY: Chest pain COMPARISON: 2022 FINDINGS: The lungs appear clear of acute infiltrate. No significant pleural effusion noted. The heart is normal size. IMPRESSION: No acute abnormality is displayed.
[2024-06-13 09:52] LABS: Absolute Basophils 0.1 K/uL (0-0.5); Absolute Eosinophils 0.2 K/uL (0-0.5); Absolute Lymphocytes (CBC) 1.5 K/uL (0.7-4.9); Absolute Monocytes 0.9 K/uL (0.1-1.3); Absolute Neutrophil 7.4 K/uL (1.8-8.0); Basophils % 0.6 % (0-1.3); Eosinophils % 1.7 % (0-4.4); Hematocrit 37.8 % (39.6-49.0); Hemoglobin 12.6 g/dL (13.6-17.9); Lymphocytes % 14.8 % (15.3-44.8); MCH 27.6 pg (27.0-35.0); MCHC 33.5 g/dL (32.0-36.0); MCV 82.4 fL (80-100); MPV 8.2 fL (7.6-11.3); Monocytes % 8.8 % (3.3-12.3); Neutrophils % 74.1 % (41.7-73.7); Nucleated Red Blood Cells % 0.1 % (0-0); Platelets 333 thou/uL (152-406); RBC Red Blood Cell Count 4.58 M/uL (4.33-5.43); Red Cell Distribution Width 14.3 % (12.1-15.2)
[2024-06-13 10:09] LABS: ALT/SGPT 15 U/L (16-61); Albumin 3.5 g/dL (3.4-5.0); Albumin/Globulin Ratio 0.8 (1.1-1.8); Alkaline Phosphatase 105 U/L (45-117); Anion Gap 5.8 mEq/L (5.0-15.0); BUN Blood Urea Nitrogen 18 mg/dL (7-18); Bicarbonate 29 mEq/L (21-32); Bilirubin Direct 0.2 mg/dL (0-0.2); Bilirubin Indirect, Calculated 0.4 mg/dL (0.2-0.8); Bilirubin Total 0.6 mg/dL (0.2-1.0); Globulin 4.3 g/dL (2.3-3.5); Glomerular Filtration Rate 57 ml/min (=/>90); Glucose Level 163 mg/dL (74-106); Lipase 44 U/L (13-75); NT PRO-BNP 19 pg/mL (<125); Potassium 3.8 mEq/L (3.5-5.1); Protein, Total 7.8 g/dL (6.4-8.2); Sodium Level 136 mEq/L (136-145); Troponin High Sensitivity 6.5 pg/mL (<58.9)
[2024-06-13 10:13] LABS: AST/SGOT < 10 U/L (15-37)
[2024-06-13 10:14] LABS: D-Dimer 0.474 FEUug/mL (0-0.500); PT Prothrombin Time 11.9 SECONDS (9.4-12.5); Protime INR 1.13
[2024-06-13] MEDS ORDERED: ASPIRIN 81 MG CHEWABLE TABLET ONE (10:14)
[2024-06-13] MEDS ORDERED: KETOROLAC 30 MG/ML INJ ONE (10:14)
[2024-06-13] MEDS ORDERED: dexAMETHasone 10 MG/ML VIAL ONE (10:14)
[2024-06-13] MEDS ORDERED: ONDANSETRON 4 MG/2 ML VIAL ONE (10:14)
[2024-06-13] MEDS ORDERED: NA CHLORIDE 0.9% 1,000 ML ONE (10:15)
[2024-06-13 10:38] LABS: Specific Gravity 1.018 (1.005-1.030); Urine Bilirubin NEGATIVE (Negative); Urine Blood Negative (Negative); Urine Clarity Clear (Clear); Urine Color Light-Yellow (Yellow); Urine Glucose NEGATIVE (Negative); Urine Ketones NEGATIVE (Negative); Urine Microscopic Reflex YN NO UMIC; Urine Nitrite NEGATIVE (Negative); Urine Protein NEGATIVE (Negative); Urine Urobilinogen Normal (Normal); Urine pH 5.5 (5.0-7.0)
--- NOTE | 2024-06-13 10:43 | ER ---
Nurse's Notes [facility] Name: Keyur Fuller Age: 68 yrs Sex: Male : 1955 Arrival Date: 06/13/2024 Time: 08:36 Bed DX4 Private MD: Diagnosis: Strain of muscle, fascia and tendon at neck level, initial encounter;Chest pain, unspecified;Unspecified symptoms and signs involving the musculoskeletal system;Spondylolysis, cervical region Presentation: 06/13 08:51 Chief complaint: Patient states: Intermittent left sided sharp CP last night and neck jl7 stiffness for the last couple months. Coronavirus screen: At this time, the client does not indicate any symptoms associated with coronavirus-19. Ebola Screen: No symptoms or risks identified at this time. Initial Sepsis Screen: Does the patient meet any 2 criteria? No. Patient's initial sepsis screen is negative. Does the patient have a suspected source of infection? No. Patient's initial sepsis screen is negative. Risk Assessment: Do you want to hurt yourself or someone else? Patient reports no desire to harm self or others. Onset of symptoms was June 12, 2024. 08:51 Method Of Arrival: Ambulatory 7 08:51 Acuity: MARKO 2 jl7 Triage Assessment: 08:53 General: Appears in no apparent distress. uncomfortable, Behavior is calm, cooperative, jl7 appropriate for age. Pain: Complains of pain in anterior aspect of left upper chest Pain currently is 5 out of 10 on a pain scale. Quality of pain is described as sharp. Cardiovascular: Patient's skin is warm and dry. Historical: - Allergies: 08:53 No Known Allergies; jl7 - PMHx: 08:53 Diabetes - NIDDM; High Cholesterol; Hypertension; jl7 - PSHx: 08:53 Cholecystectomy; jl7 - Immunization history:: Adult Immunizations unknown. - Infectious Disease History:: Denies. - Social history:: Smoking status: Patient reports use of chewing tobacco. Vital Signs: 08:51 BP 139 / 80; Pulse 72; Resp 15; Temp 97.1; Pulse Ox 100% ; Weight 86.18 kg; Height 5 jl7 ft. 11 in. ; Pain 5/10; 08:51 Body Mass Index 26.50 (86.18 kg, 180.34 cm) jl7 08:51 Pain Scale: Adult jl7 ED Course: 08:39 Patient arrived in ED. al6 08:40 Herb Guy MD is Attending Physician. [facility] 08:42 EKG completed in triage. Results shown to MD. jl7 08:53 Triage completed. jl7 08:53 Arm band placed on right wrist. jl7 09:08 XRAY Chest (1 view) In Process Unspecified. EDMS 09:11 CT C Spine In Process Unspecified. EDMS 09:40 Inserted saline lock: 20 gauge in left antecubital area, using aseptic technique. Blood iw collected. Flushed with 10 mL NS. Patient maintains SpO2 saturation greater than 95% on room air. 10:23 Kristin Tanner, RN is Primary Nurse. iw 10:42 Lawrence Zhou MD is Referral Physician. briana 10:42 Mikhail Santos MD is Referral Physician. briana Administered Medications: 10:23 Drug: Aspirin PO Chewable Tablet 81 mg PO once Route: PO; iw 11:00 Follow up: Response: No adverse reaction iw 10:24 Drug: NS 0.9% IV 1000 ml IV at 1000 ml once; to be given as a bolus over 60 minutes iw Route: IV; Rate: 1000 ml; Site: left antecubital; 11:35 Follow up: IV Status: Completed infusion iw 10:24 Drug: Decadron - Dexamethasone IVP 10 mg IVP once Route: IVP; Site: left antecubital; iw 11:00 Follow up: Response: No adverse reaction iw 10:24 Drug: Ketorolac IVP 15 mg IVP once Route: IVP; Site: left antecubital; iw 11:00 Follow up: Response: No adverse reaction iw 10:24 Drug: Ondansetron IVP 4 mg IVP once; over 2 minutes Route: IVP; Site: left antecubital; iw 11:00 Follow up: Response: No adverse reaction iw Outcome: 10:42 Discharge ordered by . [facility] 11:06 Patient left the ED. iw Signatures: Dispatcher [employer] Herb Marmolejo MD MD cha Williams, Irene, RN JONATHAN iw Nikia Johnson RN RN jl7 Angeline Blancas al6
--- NOTE | 2024-06-13 10:43 | EDPHYS ---
Physician Documentation [facility] Name: Keyur Fuller Age: 68 yrs Sex: Male : 1955 Arrival Date: 06/13/2024 Time: 08:36 Bed DX4 Private MD: ED Physician Herb Guy HPI: 06/13 08:54 This 68 yrs old Black Male presents to ER via Ambulatory with complaints of Stiff Neck, briana Chest Pain. 08:54 The patient or guardian complains of decreased range of motion, pain, that is chronic. briana The symptoms are located diffusely. Onset: The symptoms/episode began/occurred 3 week(s) ago. Context: The problem was sustained at an unknown location, The neck injury/problem resulted from from unknown cause. Associated signs and symptoms: The patient has no apparent associated signs or symptoms. Historical: - Allergies: 08:53 No Known Allergies; jl7 - PMHx: 08:53 Diabetes - NIDDM; High Cholesterol; Hypertension; jl7 - PSHx: 08:53 Cholecystectomy; jl7 - Immunization history:: Adult Immunizations unknown. - Infectious Disease History:: Denies. - Social history:: Smoking status: Patient reports use of chewing tobacco. ROS: 08:55 Constitutional: Negative for fever, chills, and weight loss, Eyes: Negative for injury, briana pain, redness, and discharge, ENT: Negative for injury, pain, and discharge, Cardiovascular: Negative for chest pain, palpitations, and edema, Respiratory: Negative for shortness of breath, cough, wheezing, and pleuritic chest pain, Abdomen/GI: Negative for abdominal pain, nausea, vomiting, diarrhea, and constipation, Back: Negative for injury and pain, : Negative for injury, bleeding, discharge, and swelling, MS/Extremity: Negative for injury and deformity, Skin: Negative for injury, rash, and discoloration, Neuro: Negative for headache, weakness, numbness, tingling, and seizure, Psych: Negative for depression, anxiety, suicide ideation, homicidal ideation, and hallucinations, Allergy/Immunology: Negative for hives, rash, and allergies, Endocrine: Negative for neck swelling, polydipsia, polyuria, polyphagia, and marked weight changes, Hematologic/Lymphatic: Negative for swollen nodes, abnormal bleeding, and unusual bruising, 08:55 Neck: Positive for injury or acute deformity, pain with movement, pain at rest, 08:55 MS/extremity: Negative for acute changes, Exam: 08:55 Constitutional: This is a well developed, well nourished patient who is awake, alert, briana and in no acute distress. Head/Face: Normocephalic, atraumatic. Eyes: Pupils equal round and reactive to light, extra-ocular motions intact. Lids and lashes normal. Conjunctiva and sclera are non-icteric and not injected. Cornea within normal limits. Periorbital areas with no swelling, redness, or edema. ENT: Nares patent. No nasal discharge, no septal abnormalities noted. Tympanic membranes are normal and external auditory canals are clear. Oropharynx with no redness, swelling, or masses, exudates, or evidence of obstruction, uvula midline. Mucous membranes moist. Chest/axilla: Normal chest wall appearance and motion. Nontender with no deformity. No lesions are appreciated. Cardiovascular: Regular rate and rhythm with a normal S1 and S2. No gallops, murmurs, or rubs. Normal PMI, no JVD. No pulse deficits. Respiratory: Lungs have equal breath sounds bilaterally, clear to auscultation and percussion. No rales, rhonchi or wheezes noted. No increased work of breathing, no retractions or nasal flaring. Abdomen/GI: Soft, non-tender, with normal bowel sounds. No distension or tympany. No guarding or rebound. No evidence of tenderness throughout. Back: No spinal tenderness. No costovertebral tenderness. Full range of motion. Male : Normal genitalia with no discharge or lesions. Skin: Warm, dry with normal turgor. Normal color with no rashes, no lesions, and no evidence of cellulitis. MS/ Extremity: Pulses equal, no cyanosis. Neurovascular intact. Full, normal range of motion., bilateral aka Neuro: Awake and alert, GCS 15, oriented to person, place, time, and situation. Cranial nerves II-XII grossly intact. Motor strength 5/5 in all extremities. Sensory grossly intact. Cerebellar exam normal. Normal gait. Psych: Awake, alert, with orientation to person, place and time. Behavior, mood, and affect are within normal limits. 08:55 Neck: External neck: is normal, no acute changes, C-spine: appears grossly normal, no vertebral tenderness, no crepitus, ROM/movement: pain, that is mild, with any movement, Lymph nodes: no appreciated lymphadenopathy, Vital Signs: 08:51 BP 139 / 80; Pulse 72; Resp 15; Temp 97.1; Pulse Ox 100% ; Weight 86.18 kg; Height 5 jl7 ft. 11 in. ; Pain 5/10; 08:51 Body Mass Index 26.50 (86.18 kg, 180.34 cm) [facility] 08:51 Pain Scale: Adult [facility] MDM: 08:40 Medical Screening Exam initiated briana 08:57 Differential diagnosis: Cervical Disc Herniation abnormal EKG, acute myocardial briana infarction, cervical strain, Herpes Zoster Osteoarthritis Spondylolisthesis. HEART Score: History: Slightly Suspicious (0), ECG: Non specific repolarization disturbance / LBTB / PM (1), Age: > or = 65 years (2), Risk Factors: > or = 3 Risk factors for atherosclerotic disease (2), [Hypercholesterolemia] [Hypertension] [DM] [+ Family HX] Troponin: < or = 1 x Normal Limit (0). The patient was given aspirin in the Emergency Department. BREANNA Risk Score: 1 - patient's age is greater or equal to 65 years, 1 - Three or more CAD risk factors, 1 - Elevated Cardiac Markers. Data reviewed: vital signs, nurses notes, lab test result(s), EKG, radiologic studies, plain films. Consideration of Admission/Observation Escalation of care including admission/observation considered. I considered the following discharge prescriptions or medication management in the emergency department Medications were administered in the Emergency Department. See MAR. Independent interpretation of the following test(s) in the Emergency Department EKG: See my EKG interpretation above. Test considered but Not performed: Ultrasound no 2 d echo. Historians other than the Patient: pt well informed. Care significantly affected by the following chronic conditions: Diabetes, Hypertension. Counseling: I had a detailed discussion with the patient and/or guardian regarding the historical points, exam findings, and any diagnostic results supporting the discharge/admit diagnosis, lab results, radiology results, the need for outpatient follow up, for definitive care, a litigation secretary, a family practitioner. 06/13 08:41 Order name: Basic Metabolic Panel; Complete Time: 10:41 [facility] 06/13 08:41 Order name: CBC with Diff; Complete Time: 10:41 [facility] 06/13 08:41 Order name: LFT's; Complete Time: 10:41 [facility] 06/13 08:41 Order name: Magnesium; Complete Time: 10:41 [facility] 06/13 08:41 Order name: NT PRO-BNP; Complete Time: 10:41 [facility] 06/13 08:41 Order name: PT-INR; Complete Time: 10:41 [facility] 06/13 08:41 Order name: Troponin HS; Complete Time: 10:41 [facility] 06/13 08:41 Order name: Lipase; Complete Time: 10:41 [facility] 06/13 08:41 Order name: Urinalysis w/ reflexes; Complete Time: 10:41 [facility] 06/13 09:45 Order name: D-Dimer; Complete Time: 10:41 EDMS 02 08:41 Order name: XRAY Chest (1 view); Complete Time: 10:41 [facility] 06/13 08:41 Order name: CT C Spine; Complete Time: 10:41 [facility] 06/13 08:41 Order name: EKG - Nurse/Tech; Complete Time: 09:12 [facility] 06/13 08:41 Order name: IV Saline Lock; Complete Time: 09:43 [facility] 06/13 08:41 Order name: Labs collected and sent; Complete Time: 10:24 [facility] 06/13 08:41 Order name: O2 Per Protocol; Complete Time: 10:24 [facility] 06/13 08:41 Order name: O2 Sat Monitoring; Complete Time: 10:24 briana Administered Medications: 10:23 Drug: Aspirin PO Chewable Tablet 81 mg PO once Route: PO; iw 11:00 Follow up: Response: No adverse reaction iw 10:24 Drug: NS 0.9% IV 1000 ml IV at 1000 ml once; to be given as a bolus over 60 minutes iw Route: IV; Rate: 1000 ml; Site: left antecubital; 11:35 Follow up: IV Status: Completed infusion iw 10:24 Drug: Decadron - Dexamethasone IVP 10 mg IVP once Route: IVP; Site: left antecubital; iw 11:00 Follow up: Response: No adverse reaction iw 10:24 Drug: Ketorolac IVP 15 mg IVP once Route: IVP; Site: left antecubital; iw 11:00 Follow up: Response: No adverse reaction iw 10:24 Drug: Ondansetron IVP 4 mg IVP once; over 2 minutes Route: IVP; Site: left antecubital; iw 11:00 Follow up: Response: No adverse reaction iw Disposition Summary: 06/13/24 10:42 Discharge Ordered Notes: Location: Home briana Problem: new briana Symptoms: have improved briana Condition: Stable briana Diagnosis - Strain of muscle, fascia and tendon at neck level, initial encounter briana - Chest pain, unspecified briana - Unspecified symptoms and signs involving the musculoskeletal system briana - Spondylolysis, cervical region briana Followup: briana - With: Private Physician - When: 2 - 3 days - Reason: Recheck today's complaints, Continuance of care, Re-evaluation by your physician Followup: briana - With: Lawrence Zhou MD - When: 2 - 3 days - Reason: Recheck today's complaints, Re-evaluation by your physician Followup: briana - With: Mikhail Santos MD - When: 2 - 3 days - Reason: Recheck today's complaints, Re-evaluation by your physician Discharge Instructions: - Discharge Summary Sheet briana - Nonspecific Chest Pain, Adult briana - Chest Wall Pain briana - Musculoskeletal Pain briana - Chest Wall Pain, [id number] briana - Nonspecific Chest Pain, Adult, [id number] briana - Aspirin and Your Heart briana - Spondylolysis [facility] Forms: - Medication Reconciliation Form briana - Antibiotic Education briana - Prescription Opioid Use briana - Patient Portal Instructions [facility] - Leadership Thank You Letter [facility] Prescriptions: - dexamethasone 4 mg Oral tablet - take 1 tablet ORAL route once daily; 4 tablet; Refills: 0, Product Selection briana Permitted - diclofenac sodium 25 mg Oral tablet, delayed release (enteric coated) - take 1 tablet ORAL route every 6 hours; 28 tablet; Refills: 0, Product [facility] Selection Permitted - Pepcid 20 mg Oral Tablet - take 1 tablet ORAL route every 12 hours for 10 days; 20 tablet; Refills: 0, [facility] Product Selection Permitted Signatures: Dispatcher [employer] Herb Marmolejo MD MD cha Williams, Irene RN RN Nikia Martinez RN RN jl7 Corrections: (The following items were deleted from the chart) 08:41 08:41 BASIC METABOLIC PANEL+C.LAB.BRZ ordered. EDMS EDMS 08:41 08:41 CBC+H.LAB.BRZ ordered. EDMS EDMS 08:41 08:41 HEPATIC FUNCTION+C.LAB.BRZ ordered. EDMS EDMS 08:41 08:41 MAGNESIUM+C.LAB.BRZ ordered. EDMS EDMS 08:41 08:41 PROBNP+C.LAB.BRZ ordered. EDMS EDMS 08:41 08:41 PROTIME (+INR)+COAG.LAB.BRZ ordered. EDMS EDMS 08:41 08:41 Troponin High Sensitivity+C.LAB.BRZ ordered. EDMS EDMS 08:41 08:41 LIPASE+C.LAB.BRZ ordered. EDMS EDMS 08:41 08:41 Urinalysis+U.LAB.BRZ ordered. EDMS EDMS 08:42 08:41 Chest Single View+RAD.RAD.BRZ ordered. EDMS EDMS 08:42 08:42 C Spine Wo Con+CT.RAD.BRZ ordered. EDMS EDMS 09:44 08:55 D-DIMER+COAG.LAB.BRZ ordered. EDMS EDMS
[2024-06-13 11:10] VITALS: BP 139/80; TEMP 97.1; O2SAT 100
--- NOTE | 2024-06-13 11:24 | EKG ---
Test Date: 2024-06-13 Test Time: 08:48:49 Register Repairer: BLANCHE MEASUREMENT RESULTS: Intervals: Rate: 66 [place]: 146 QRSD: 106 QT: 400 QTc: 419 [place]: P: 54 [place]: 146 QRS: -49 T: -3 INTERPRETIVE STATEMENTS: Normal sinus rhythm Left anterior fascicular block Abnormal ECG Compared to ECG 09/01/2022 06:28:35 No significant changes Electronically Signed On 06-13-24 11:23:57 PRODUCTION ADMINISTRATIVE ASSISTANT by Dimas Chen
== END 2024-06-13 11:06 | disposition home or self-care (01) ==
LOC: ER 08:36
DX: S16.1XXA Strain of muscle, fascia and tendon at neck level, initial encounter (principal); R07.9 Chest pain, unspecified; R29.91 Unspecified symptoms and signs involving the musculoskeletal system; M43.02 Spondylolysis, cervical region; I10 Essential (primary) hypertension; F17.220 Nicotine dependence, chewing tobacco, uncomplicated
CPT/HCPCS: 96361; 93005; 85025; 80048; 36415; 83735; 85610; 85379; 80076; 81003; 84484; 83690; 83880; 72125; 71045; 96375; 96374; 99284; J1100; J2405; J7030